=== PATIENT | male | born 1950 | race Caucasian/White ===

== ENCOUNTER 2021-07-17 13:15 | Inpatient (IN) | payer MEDICARE, OTHER ==
[~2021-07-17] VITALS: Ht 193 cm; Wt 98.9 kg
[~2021-07-17 13:15] MED LIST: ASP81TEC PO; AVOD0.5CAP PO; BETA1TAB15 PO; CIPR2.5D RIGHT EAR; HYDR1TAB PO; LVT.1T PO; OMEG1CAP53 PO; PRAV80TA2 PO; TML.25OP OP
--- OUTSIDE RECORDS SUMMARY | 2021-07-17 13:23 | XMS REPORT | Clinical Summary ---
Author Author [facility] Organization [facility] Address Unknown Phone Unavailable Care Team Providers Care Sales Support Consultant Name Role Phone PCP Unavailable Allergies Not on File Medications Not on file Active Problems Not on file Social History Date Tobacco Use Types Packs/Day Years Used Never Assessed Sex Assigned at Date Recorded Not on file Last Filed Vital Signs Not on file Plan of Treatment Not on file Results Not on filefrom Last 3 Months
[2021-07-17 13:45] LABS: HEMATOCRIT 45 % (40-54); HEMOGLOBIN 15.1 g/dL (13.3-17.7); LYMPHOCYTES % (AUTO) 24 % (12-44); MEAN CORPUSCULAR HEMOGLOBIN 31 pg (25-34); MEAN CORPUSCULAR HGB CONC 33 g/dL (32-36); MEAN CORPUSCULAR VOLUME 92 fL (80-99); MEAN PLATELET VOLUME 9.8 fL (9.0-12.2); NEUTROPHILS % (AUTO) 65 % (42-75); PLATELET COUNT 208 10^3/uL (130-400); WHITE BLOOD COUNT 6.8 10^3/uL (4.3-11.0)
[2021-07-17 13:46] LABS: BASOPHILS % (AUTO) 1 % (0-10); BILIRUBIN,URINE NEGATIVE (NEGATIVE); CLARITY,URINE CLEAR; EOSINOPHILS # (AUTO) 0.1 10^3/uL (0.0-0.3); EOSINOPHILS % (AUTO) 2 % (0-10); GLUCOSE, URINE (UA) NEGATIVE (NEGATIVE); KETONES,URINE NEGATIVE (NEGATIVE); LEUKOCYTE ESTERASE ,URINE NEGATIVE (NEGATIVE); LYMPHOCYTES # (AUTO) 1.6 X 10^3 (1.0-4.0); MONOCYTES # (AUTO) 0.6 X 10^3 (0.0-1.0); MONOCYTES % (AUTO) 9 % (0-12); NEUTROPHILS # (AUTO) 4.4 X 10^3 (1.8-7.8); NITRITE,URINE NEGATIVE (NEGATIVE); PH,URINE 6.5 (5-9); PROTEIN,URINE NEGATIVE (NEGATIVE)
[2021-07-17 13:53] LABS: BACTERIA,URINE NEGATIVE /HPF; COLOR,URINE PALE YELLOW; RBC,URINE RARE /HPF; WBC,URINE RARE /HPF
[2021-07-17 13:58] LABS: AMPHETAMINE SCREEN, URINE NEGATIVE (NEGATIVE); BARBITURATE SCREEN URINE NEGATIVE (NEGATIVE); BENZODIAZEPINES SCREEN URINE NEGATIVE (NEGATIVE); CANNABINOID SCREEN, URINE NEGATIVE (NEGATIVE); COCAINE SCREEN URINE NEGATIVE (NEGATIVE); METHADONE STAT NEGATIVE (NEGATIVE); METHAMPHETAMINE SCREEN URINE S NEGATIVE (NEGATIVE); OPIATE SCREEN URINE NEGATIVE (NEGATIVE); OXYCODONE STAT NEGATIVE (NEGATIVE); PROPOXYPHENE STAT NEGATIVE (NEGATIVE); TRICYCLIC ANTIDEPRESSANTS SCRE NEGATIVE (NEGATIVE)
--- NOTE | 2021-07-17 13:58 | ED General ---
General Chief Complaint: Altered Mental Status Stated Complaint: AMS LIGHTHEADED Source of Information: Patient, Spouse History of Present Illness Date Seen by Provider: Jul 17, 2021 Time Seen by Provider: 13:23 Initial Comments 71-year-old male presenting with his due to complaints of feeling lightheaded and having some confusion since around 11:15 AM. Initially his thought that it might be related to him needing to eat lunch. They ate lunch and it did not improve his symptoms. She also checked his blood pressure and it was reading high around 170/98. He continued to have some repetitive questions and lightheaded feeling so after few hours they decided to come to the emergency department. He never had any numbness or weakness in his arms or legs. He denied having any change in his vision but does have macular degeneration so is very limited in his vision. He reports a mild headache. He denies any chest pain, abdominal pain, nausea, vomiting, pain with urination. He has not had any cough or shortness of breath. He denies having a fever or chills. His reports that he usually has a low blood pressure and takes metoprolol for controlling his blood pressure. Timing/Duration: 1-3 Hours Severity: Mild Associated Systoms: No Chest Pain, No Cough, No Diaphoresis, No Fever/Chills; Headaches (mild generalized); No Loss of Appetite, No Malaise, No Nausea/Vomiting, No Rash, No Seizure, No Shortness of Air, No Syncope, No Weakness Allergies and Home Medications Allergies Coded Allergies: Penicillins (Verified Allergy, Unknown, 07/17/21) Patient Home Medication List Home Medication List Reviewed: Yes Aspirin (Aspirin Ec 81 Mg) 81 Mg Tabec, 81 MG PO DAILY, (Reported) Entered as Reported by: ARYA ALONSO on 03/11/11926 Ciprofloxacin Hcl (Ciloxan 0.3%) 2.5 Ml Drops, 3 DROPS RIGHT EAR BID, (Reported) Entered as Reported by: DALE ESQUIVEL on 03/14/11 101 Dutasteride (Avodart) 0.5 Mg Capsule, 0.5 MG PO HS, (Reported) Entered as Reported by: ARYA ALONSO on 03/11/11926 Hydrocodone Bit/Acetaminophen (Vicodin 5-500 Tablet) 1 Each Tablet, 1-2 EACH PO Q4HR PRN, (Reported) Entered as Reported by: DALE ESQUIVEL on 03/14/11 1019 Levothyroxine Sodium (Synthroid) 100 Mcg Tablet, 1 EACH PO DAILY, (Reported) Entered as Reported by: ARYA ALONSO on 03/11/11926 [place]-3 Fatty Acids/Fish Oil (Fish Oil 1,[address]) 1 Each Capsule.dr, 1 EACH PO BID, (Reported) Entered as Reported by: ARYA ALONSO on 03/11/11926 Pravastatin Sodium (Pravastatin Sodium) 80 Mg Tablet, 40 MG PO HS, (Reported) Entered as Reported by: ARYA ALONSO on 03/11/11926 Timolol (Betimol) 15 Ml Drops, 1 DROP OP DAILY, (Reported) Entered as Reported by: ARYA ALONSO on 03/11/11926 Vit A/Vit C/Vit E/Zinc/Copper (Preservision Tablet) 1 Each Tablet, 1 EACH PO DAILY, (Reported) Entered as Reported by: ARYA ALONSO on 03/11/11926 Review of Systems Review of Systems Constitutional: No chills, No dizziness, No fever, No malaise; other (feels light headed) EENTM: no symptoms reported Respiratory: No cough, No short of breath Cardiovascular: No chest pain, No palpitations, No syncope Gastrointestinal: No abdominal pain, No nausea, No vomiting Genitourinary: No dysuria, No frequency Musculoskeletal: no symptoms reported Skin: No rash Psychiatric/Neurological: See HPI, Headache (mild generalized headache); Denies Numbness, Denies Paresthesia, Denies Tingling, Denies Tremors, Denies Weakness Hematologic/Lymphatic: Denies Blood Clots Past Pjcwmet-Qforfz-Pixmwi Hx Patient Social History Tobacco Use?: No Smoking Status: Never a Smoker Smokeless Tobacco Frequency: Never a User Use of E-Cig and/or Vaping Jorge: Never a User Substance use?: No Alcohol Use?: No Pt feels they are or have been: No Immunizations Up To Date First/Initial COVID19 Vaccinat: Moderna Second COVID19 Vaccination Familia: Moderna COVID19 Vaccine Commissary Manager: Floyd Past Medical History Surgery/Hospitalization HX: Hypothyroid, Hypercholesterolemia, Hypertension Reproductive Disorders: No Physical Exam Vital Signs Vital Signs - First Documented 07/17/21 13:25 Temp 36.4 Pulse 58 Resp 18 B/P (MAP) 219/101 (140) Pulse Ox 99 O2 Delivery Room Air Capillary Refill : Height, Weight, BMI Height: '" Weight: lbs. oz. kg; BMI Method: General Appearance: No Apparent Distress, WD/WN HEENT: PERRL/EOMI, TMs Normal, Pharynx Normal Neck: Full Range of Motion, Normal Inspection, Non Tender, Supple Respiratory: Chest Non Tender, Lungs Clear, Normal Breath Sounds, No Accessory Muscle Use, No Respiratory Distress Cardiovascular: Regular Rate, Rhythm, Normal Peripheral Pulses Gastrointestinal: Normal Bowel Sounds, No Pulsatile Mass, Non Tender, Soft Rectal: Deferred Back: No CVA Tenderness, No Vertebral Tenderness Extremity: Normal Capillary Refill, Normal Inspection, No Calf Tenderness, No Pedal Edema Neurologic/Psychiatric: Alert, Oriented x3, No Motor/Sensory Deficits, Normal Mood/Affect, manager clinical applications II-XII Norm as Tested Skin: Normal Color, Warm/Dry Progress/Results/Core Measures Suspected Sepsis SIRS Temperature: Pulse: Respiratory Rate: Laboratory Tests 07/17/21 13:32: White Blood Count 6.8 Blood Pressure / Mean: Laboratory Tests 07/17/21 13:32: Creatinine 1.02, INR Comment 1.0, Platelet Count 208, Total Bilirubin 1.3H Results/Orders Lab Results Laboratory Tests Test 07/17/21 13:32 Range/Units White Blood Count 6.8 4.3-11.0 10^3/uL Red Blood Count 4.94 4.30-5.52 10^6/uL Hemoglobin 15.1 13.3-17.7 g/dL Hematocrit 45 40-54 % Mean Corpuscular Volume 92 80-99 fL Mean Corpuscular Hemoglobin 31 25-34 pg Mean Corpuscular Hemoglobin Concent 33 32-36 g/dL Red Cell Distribution Width 13.2 10.0-14.5 % Platelet Count 208 130-400 10^3/uL Mean Platelet Volume 9.8 9.0-12.2 fL Immature Granulocyte % (Auto) 0 % Neutrophils (%) (Auto) 65 42-75 % Lymphocytes (%) (Auto) 24 12-44 % Monocytes (%) (Auto) 9 0-12 % Eosinophils (%) (Auto) 2 0-10 % Basophils (%) (Auto) 1 0-10 % Neutrophils # (Auto) 4.4 1.8-7.8 X 10^3 Lymphocytes # (Auto) 1.6 1.0-4.0 X 10^3 Monocytes # (Auto) 0.6 0.0-1.0 X 10^3 Eosinophils # (Auto) 0.1 0.0-0.3 10^3/uL Basophils # (Auto) 0.0 0.0-0.1 10^3/uL Immature Granulocyte # (Auto) 0.0 0.0-0.1 10^3/uL Prothrombin Time 13.1 12.2-14.7 SEC INR Comment 1.0 0.8-1.4 Activated Partial Thromboplast Time 26 24-35 SEC Urine Color PALE YELLOW Urine Clarity CLEAR Urine pH 6.5 5-9 Urine Specific Merritt <=1.005 1.016-1.022 Urine Protein NEGATIVE NEGATIVE Urine Glucose (UA) NEGATIVE NEGATIVE Urine Ketones NEGATIVE NEGATIVE Urine Nitrite NEGATIVE NEGATIVE Urine Bilirubin NEGATIVE NEGATIVE Urine Urobilinogen 0.2 < = 1.0 MG/DL Urine Leukocyte Esterase NEGATIVE NEGATIVE Urine RBC (Auto) NEGATIVE NEGATIVE Urine RBC RARE /HPF Urine WBC RARE /HPF Urine Squamous Epithelial Cells NONE /HPF Urine Crystals NONE /LPF Urine Bacteria NEGATIVE /HPF Urine Casts NONE /LPF Urine Mucus NEGATIVE /LPF Urine Culture Indicated NO Sodium Level 139 135-145 MMOL/L Potassium Level 4.8 3.6-5.0 MMOL/L Chloride Level 105 98-107 MMOL/L Carbon Dioxide Level 26 21-32 MMOL/L Anion Gap 8 5-14 MMOL/L Blood Urea Nitrogen 15 7-18 MG/DL Creatinine 1.02 0.60-1.30 MG/DL Estimat Glomerular Filtration Rate 72 BUN/Creatinine Ratio 15 Glucose Level 105 70-105 MG/DL Calcium Level 8.7 8.5-10.1 MG/DL Corrected Calcium 8.5 8.5-10.1 MG/DL Magnesium Level 2.3 1.6-2.4 MG/DL Total Bilirubin 1.3 H 0.1-1.0 MG/DL Aspartate Amino Transf (AST/SGOT) 23 5-34 U/L Alanine Aminotransferase (ALT/SGPT) 21 0-55 U/L Alkaline Phosphatase 70 40-136 U/L Troponin I < 0.30 <0.30 NG/ML Pro-B-Type Natriuretic Peptide 146.0 H <75.0 PG/ML Total Protein 7.3 6.4-8.2 GM/DL Albumin 4.3 3.2-4.5 GM/DL Salicylates Level < 0.3 L 5.0-20.0 MG/DL Urine Opiates Screen NEGATIVE NEGATIVE Urine Oxycodone Screen NEGATIVE NEGATIVE Urine Methadone Screen NEGATIVE NEGATIVE Urine Propoxyphene Screen NEGATIVE NEGATIVE Acetaminophen Level < 10 L 10-30 UG/ML Urine Barbiturates Screen NEGATIVE NEGATIVE Ur Tricyclic Antidepressants Screen NEGATIVE NEGATIVE Urine Phencyclidine Screen NEGATIVE NEGATIVE Urine Amphetamines Screen NEGATIVE NEGATIVE Urine Methamphetamines Screen NEGATIVE NEGATIVE Urine Benzodiazepines Screen NEGATIVE NEGATIVE Urine Cocaine Screen NEGATIVE NEGATIVE Urine Cannabinoids Screen NEGATIVE NEGATIVE Serum Alcohol < 10 <10 MG/DL My Orders Orders - KENDALL CHAHAL MD Ua Culture If Indicated (07/17/21 13:25) Cbc With Automated Diff (07/17/21 13:25) Comprehensive Metabolic Panel (07/17/21 13:25) Alcohol (07/17/21 13:25) Drug Screen Stat (Urine) (07/17/21 13:25) Acetaminophen (07/17/21 13:25) Salicylate (07/17/21 13:25) Ekg Tracing (07/17/21 13:25) Ed Iv/Invasive Line Start (07/17/21 13:25) Monitor-Rhythm Ecg Trace Only (07/17/21 13:25) Ct Head Wo (07/17/21 13:48) Chest 1 View Ap/Pa Only (07/17/21 13:48) Troponin I Fs (07/17/21 13:48) Probnp Fs (07/17/21 13:48) Magnesium (07/17/21 13:48) Protime With Inr (07/17/21 14:33) Partial Thromboplastin Time (07/17/21 14:33) Ct Angio Head/Neck (07/17/21 16:25) Iohexol Injection (Omnipaque 350 Mg/Ml 1 (07/17/21 16:45) Received Contrast (Hold Metformin- Contr (07/17/21 16:45) Ns (Ivpb) (Sodium Chloride 0.9% Ivpb Bag (07/17/21 16:45) Medications Given in ED Current Medications Medications Dose Ordered Sig/Indu Route Start Time Stop Time Status Last Admin Dose Admin Iohexol 100 ml ONCE ONCE IV 07/17/21 16:45 07/17/21 16:46 DC 07/17/21 16:52 80 ML Sodium Chloride 100 ml ONCE ONCE IV 07/17/21 16:45 07/17/21 16:46 DC 07/17/21 16:52 100 ML Vital Signs/I&O 07/17/21 07/17/21 13:25 17:39 Temp 36.4 36.0 Pulse 58 82 Resp 18 16 B/P (MAP) 219/101 (140) 142/76 Pulse Ox 99 99 O2 Delivery Room Air Room Air Capillary Refill : Progress Note #1: Progress Note He has severe macular degeneration and limited eyesight. His NIH scale was 0. He reports having some lightheaded sensation and the reports he continues to have some repetitive questions. He is oriented x3 and answering all questions appropriately for us. Will obtain blood work as well as CT of the head, chest x-ray, urine. He is hypertensive at 219/101 on arrival. This could be hypertensive urgency that is causing his symptoms. Will continue to monitor his blood pressure and it may necessitate a medication intervention to help control this. Differential diagnosis includes hypertensive urgency, stroke, TIA, UTI, sinusitis, pneumonia, electrolyte imbalance Progress Note #2: Progress Note Without medication his blood pressure was trending down on its own. He reports that his lightheaded sensation was improving. He had no acute significant a bnormality on his blood work or electrocardiogram. His chest x-ray was clear. His initial CT head showed some microvascular chronic small vessel changes but no acute bleed or stroke findings. Updated patient and spouse and advised that he may require CT angiogram or CT of his head with I to help look at his blood vessels and carotid arteries better. The neurology doctors at over the ones that we consult about stroke and neurology changes so I will call them and get their input as well. Progress Note #3: Progress Note The on-call stroke neurologist, Dr. Dupont, reviewed the case with me over the phone. With the patient in a stroke scale is 0 but still having some repetitive questions per the , Dr. Dupont recommended admission for TIA/stroke work-up. he also recommends Vitamin B12 level. d/w Dr. Mason the vocational training instructor doctor for Dr. Fuller. Will admit for further testing and monitor his blood pressure and neuro checks. ECG Initial ECG Impression Date: Jul 17, 2021 Initial ECG Impression Time: 13:36 Initial ECG Rate: 55 Initial ECG Rhythm: Normal Sinus Initial ECG Comparisson: Unchanged Comment Normal sinus rhythm with a heart rate of 55 bpm. CA interval 205 ms. QT interval 443 ms with a QTc interval 424 ms. Appears similar to tracing from 2010. No acute ST elevation. Diagnostic Imaging Diagonstic Imaging: Xray Plain Films/CT/US/NM/MRI: chest Comments [facility] [place] [place] NAME: CANDICE QUEZADA [facility] REC#: [id number] PT STATUS: REG ER : 1950 PHYSICIAN: KENDALL CHAHAL MD ADMIT DATE: 07/17/21/ER FS Signed Date of Exam:07/17/21 CHEST 1 VIEW AP/PA ONLY INDICATION: Lightheadedness and elevated blood pressure. TIME OF EXAM: 1:56 PM No prior studies are available for comparison. The heart size is normal. The pulmonary vascularity is unremarkable. The lungs are clear. No infiltrate, effusion or pneumothorax is detected. IMPRESSION: No acute cardiopulmonary process is detected. Dictated by: Dictated on workstation # [id number] Dict: 07/17/21 1413 Trans: 07/17/21 1559 [facility] [id number] Interpreted by: ESME HALL MD Electronically signed by: ESME HALL MD 07/17/21 1559 Reviewed: Reviewed by La Diagonstic Imaging: CT Plain Films/CT/US/NM/MRI: head Comments [facility] [place] [place] NAME: CANDICE QUEZADA [facility] REC#: [id number] PT STATUS: REG ER : 1950 PHYSICIAN: KENDALL CHAHAL MD ADMIT DATE: 07/17/21/ER FS Draft Date of Exam:07/17/21 CT HEAD WO PROCEDURE: CT head without contrast. TECHNIQUE: Multiple contiguous axial images were obtained through the brain without the use of intravenous contrast. Auto Exposure Controls were utilized during the CT exam to meet ALARA standards for radiation dose reduction. INDICATION: Dizziness. COMPARISON: None. FINDINGS: The ventricles and cortical sulci are diffusely prominent, compatible with age-related volume loss. There are confluent areas of abnormal, low attenuation in the periventricular white matter. This is consistent with small vessel ischemic changes; age-indeterminate. There is no prior study available for comparison. There is no midline shift or mass-effect. No acute intra-axial hemorrhage is seen. There are no abnormal areas of increased or decreased density to suggest acute hemorrhage or edema. No extra-axial masses or collections are present. The bony calvarium is intact. The visualized paranasal sinuses show debris partially filling the left maxillary sinus. The mastoid air cells are clear. IMPRESSION: 1. No acute intracranial abnormality. No CT evidence of mass, acute infarct or intracranial hemorrhage. 2. Small vessel ischemic changes in the periventricular and subcortical white matter; likely chronic. Dictated on workstation # [id number] Dict: 07/17/21 1429 Trans: 07/17/21 1433 [id number] Interpreted by: JET AJ MD Electronically signed by: Reviewed: Reviewed by Me Diagonstic Imaging: CT (angiography) Plain Films/CT/US/NM/MRI: head (and neck) Comments [facility] [place] [place] NAME: CANDICE QUEZADA [facility] REC#: [id number] PT STATUS: REG ER : 1950 PHYSICIAN: KENDALL CHAHAL MD ADMIT DATE: 07/17/21/ER FS Signed Date of Exam:07/17/21 CT ANGIO HEAD/NECK PROCEDURE: CT angiography of the head and CT angiography of the neck with and without contrast. TECHNIQUE: Contiguous noncontrast images were obtained from the skull base through the vertex. After intravenous contrast administration, helical CT angiography of the neck was performed. Source data was reformatted into 3D MIP projections. Delayed postcontrast acquisition was also obtained. Auto Exposure Controls were utilized during the CT exam to meet ALARA standards for radiation dose reduction. INDICATION: Altered mental status. COMPARISON: Noncontrast head from earlier same day. FINDINGS: CTA NECK: Visualized portions of the aortic arch are normal. The great vessels of the aortic arch are patent. Bilateral common carotid arteries are normal. There is no stenosis of the internal carotid arteries per NASCET criteria. The cervical divisions of the internal carotid arteries are patent. The bilateral vertebral arteries are codominant and widely patent. No cervical lymphadenopathy. Airway is widely patent. No concerning abnormality in the cervical spine. CTA HEAD: The bilateral distal internal carotid arteries are widely patent. The M1 and M2 divisions of the middle cerebral arteries are normal. Anterior cerebral arteries are normal. Basilar artery is widely patent without terminal aneurysm. Posterior cerebral arteries are patent. No saccular aneurysm. Dural venous sinuses are patent. IMPRESSION: 1. No intracranial large vessel occlusion or saccular aneurysm. 2. No stenosis or arterial occlusion within the neck. 3. Patent dural venous sinuses. Dictated by: Dictated on workstation # [id number] Dict: 07/17/211658 Trans: 07/17/211804 [id number] Interpreted by: DOMENICO YIN MD Electronically signed by: DOMENICO YIN MD 07/17/211804 Departure Communication (Admissions) Time/Spoke to Admitting Phy: 16:[address] Mason about the patient. Patient's labs and test showed some microvascular changes on his head but no signs of definite stroke. My phone consult with Dr. Dupont, the vocational training instructor stroke neurologist, resulted in him recommending an admit for TIA work up to help differentiate from hypertensive ur gency vs stroke/TIA. Will obtain CT angiography here and continue with testing at [facility]. Impression Primary Impression: Hypertensive urgency Additional Impressions: Memory deficit Altered mental status Qualified Codes: R40.4 - Transient alteration of awareness Disposition: 30 STILL A PATIENT Condition: Stable Admissions Decision to Admit Reason: Admit from ER (General) Decision to Admit/Date: Jul 17, 2021 Time/Decision to Admit Time: 16:39 Departure-Patient Inst. Referrals: TERESSA FULLER MD (PCP) Primary Care Physician NIH Stroke Scale NIH Stroke Scale NIH : Select: Initial Level of Consciousness: 0=Alert Level of Consciousness-Questio: 0=Answers both month/age LOC Commands: 0=Performs both tasks Gaze: 0=Normal Visual Hong: 0=No visual loss Facial Movement (Facial Paresi: 0=Normal symmetrical mnt Motor Function-Arms Right: 0=No drift Motor Function-Arms Left: 0=No drift Motor Function-Legs Right: 0=No drift Motor Function-Legs Left: 0=No drift Limb Ataxia: 0=Absent Sensory: 0=Normal:no loss Best Language: 0=No aphasia Dysarthria: 0=Normal Extinction & Inattention: 0=No abnormality NIH Stroke Scale Score: 0 KENDALL CHAHAL MD Jul 17, 2021 13:58
--- NOTE | 2021-07-17 14:19 | Diagnostic Imaging Report ---
INDICATION: Lightheadedness and elevated blood pressure. TIME OF EXAM: 1:56 PM No prior studies are available for comparison. The heart size is normal. The pulmonary vascularity is unremarkable. The lungs are clear. No infiltrate, effusion or pneumothorax is detected. IMPRESSION: No acute cardiopulmonary process is detected. Dictated by: Dictated on workstation # [id number]
[2021-07-17 14:27] LABS: CARBON DIOXIDE 26 MMOL/L (21-32); CHLORIDE 105 MMOL/L (98-107); POTASSIUM 4.8 MMOL/L (3.6-5.0); SODIUM 139 MMOL/L (135-145)
[2021-07-17 14:28] LABS: ACETAMINOPHEN < 10 UG/ML (10-30); ALANINE AMINOTRANSFERASE 21 U/L (0-55); ALBUMIN 4.3 GM/DL (3.2-4.5); ALKALINE PHOSPHATASE 70 U/L (40-136); BILIRUBIN,TOTAL 1.3 MG/DL (0.1-1.0); BUN/CREATININE RATIO 15; CALCIUM 8.7 MG/DL (8.5-10.1); CREATININE SERUM 1.02 MG/DL (0.60-1.30); GFR ESTIMATED 72; GLUCOSE 105 MG/DL (70-105); SALICYLATE < 0.3 MG/DL (5.0-20.0); TOTAL PROTEIN 7.3 GM/DL (6.4-8.2)
[2021-07-17 14:29] LABS: MAGNESIUM 2.3 MG/DL (1.6-2.4)
--- NOTE | 2021-07-17 14:34 | Diagnostic Imaging Report ---
PROCEDURE: CT head without contrast. TECHNIQUE: Multiple contiguous axial images were obtained through the brain without the use of intravenous contrast. Auto Exposure Controls were utilized during the CT exam to meet ALARA standards for radiation dose reduction. INDICATION: Dizziness. COMPARISON: None. FINDINGS: The ventricles and cortical sulci are diffusely prominent, compatible with age-related volume loss. There are confluent areas of abnormal, low attenuation in the periventricular white matter. This is consistent with small vessel ischemic changes; age-indeterminate. There is no prior study available for comparison. There is no midline shift or mass-effect. No acute intra-axial hemorrhage is seen. There are no abnormal areas of increased or decreased density to suggest acute hemorrhage or edema. No extra-axial masses or collections are present. The bony calvarium is intact. The visualized paranasal sinuses show debris partially filling the left maxillary sinus. The mastoid air cells are clear. IMPRESSION: 1. No acute intracranial abnormality. No CT evidence of mass, acute infarct or intracranial hemorrhage. 2. Small vessel ischemic changes in the periventricular and subcortical white matter; likely chronic. Dictated by: Dictated on workstation # [id number]
[2021-07-17 14:45] LABS: PROTHROMBIN TIME PATIENT 13.1 SEC (12.2-14.7)
[2021-07-17] MEDS ORDERED: IOHEXOL 350 MG/ML 100 ML (OMNIPAQUE 350) VIAL IV ONE (16:45)
[2021-07-17] MEDS ORDERED: NS 100 ML (IVPB) BAG IV ONE (16:45)
[2021-07-17] MEDS ORDERED: HOLD METFORMIN - RECEIVED CONTRAST 20 ML VIAL IV SCH (16:45)
--- NOTE | 2021-07-17 17:10 | Diagnostic Imaging Report ---
PROCEDURE: CT angiography of the head and CT angiography of the neck with and without contrast. TECHNIQUE: Contiguous noncontrast images were obtained from the skull base through the vertex. After intravenous contrast administration, helical CT angiography of the neck was performed. Source data was reformatted into 3D MIP projections. Delayed postcontrast acquisition was also obtained. Auto Exposure Controls were utilized during the CT exam to meet ALARA standards for radiation dose reduction. INDICATION: Altered mental status. COMPARISON: Noncontrast head from earlier same day. FINDINGS: CTA NECK: Visualized portions of the aortic arch are normal. The great vessels of the aortic arch are patent. Bilateral common carotid arteries are normal. There is no stenosis of the internal carotid arteries per NASCET criteria. The cervical divisions of the internal carotid arteries are patent. The bilateral vertebral arteries are codominant and widely patent. No cervical lymphadenopathy. Airway is widely patent. No concerning abnormality in the cervical spine. CTA HEAD: The bilateral distal internal carotid arteries are widely patent. The M1 and M2 divisions of the middle cerebral arteries are normal. Anterior cerebral arteries are normal. Basilar artery is widely patent without terminal aneurysm. Posterior cerebral arteries are patent. No saccular aneurysm. Dural venous sinuses are patent. IMPRESSION: 1. No intracranial large vessel occlusion or saccular aneurysm. 2. No stenosis or arterial occlusion within the neck. 3. Patent dural venous sinuses. Dictated by: Dictated on workstation # [id number]
[2021-07-17] MEDS ORDERED: hydrALAZINE (APESOLINE) 20 MG/ML VIAL IV PRN (19:45)
[2021-07-17] MEDS ORDERED: lisINopril 20 MG (PRINIVIL) TABLET PO ONE (19:45)
[2021-07-17] MEDS ORDERED: lisINopril 20 MG (PRINIVIL) TABLET ONE (19:57)
[2021-07-17 20:05] VITALS: BP 180/91
[2021-07-18] VITALS: BP 136/80
[2021-07-18 04:00] VITALS: BP 163/91
[2021-07-18 05:37] LABS: TRIGLYCERIDES 132 MG/DL (<150); VLDL CHOLESTEROL 26 MG/DL (5-40)
[2021-07-18 05:41] LABS: CHOLESTEROL 153 MG/DL (< 200)
[2021-07-18 05:42] LABS: HDL CHOLESTEROL 31 MG/DL (40-60)
[2021-07-18 08:00] VITALS: BP 154/91
--- NOTE | 2021-07-18 08:41 | ST Dysphagia Evaluation ---
Speech Evaluation-General Medical Diagnosis HTN, AMS Onset Date: Jul 18, 2021 Therapy Diagnosis Therapy Diagnosis: Oropharyngeal Dysphagia Precautions Precautions: Aspiration Referral Referring Physician: Dr. Mason Medical History Pertinent Medical History: HTN Reviewed History: Yes Social History Current Living Status: Spouse Speech PLF/Current-Dysphagia Prior Level of Function Patient lived in the home with his in [place] where he was independent with his daily needs. Subjective Patient was pleasant and cooperative with the Bedside Dysphagia Evaluation. Cognitive Status Patient Orientation: Person, Confused, Place, Time, Situation Oral Motor Skills Dentition: Natural Current Food Consistancy: Regular, Thin Liquids Ability to Follow Directions: Excellent Oral Expression Ability: No Impairment Voice Voice Phonatory-Based Quality: Normal Voice Pitch: Normal Voice Loudness: Normal Face Facial Symmetry: Symmetrical Oral-Facial Assessment Oral-Facial Dentition: Normal Labial Seal Description: Normal Smile: Normal Puff Cheeks: Normal Lingual Protrusion: Normal Lingual ROM: Normal Lingual Strength: Normal Pharynx Velopharyngeal Move.: Normal Volitional Dry Swallow: Yes Voluntary Cough: Yes Can Clear Throat Volitionally: Yes Productive Cough: Yes Dysphagia Evaluation Consistencies Presented: Regular, Mechanical Soft, Pureed Oral phase is within normal range of function with all presented consistencies. Pharyngeal phase is within normal range of function with all presented consistencies. Dietary Recommendations: Regular Liquid Recommendations: Thin Swallowing Precautions: Alternate Liquids/Solids, Liquids from Cup, Liquids from Straw, Small Bites and Sips, Sitting Upright 90 Degrees, Sitting 90 Degrees 30 Post Intake Dysphagia Evaluation Summary Patient is a pleasant 71 y/o male who was admitted to the hospital via ED due to AMS. Patient states he has high blood pressure but didn't know until yesterday in the ED. The patient was evaluated at bedside for swallow function to determine the least restrictive diet level. The patient was given trials of thin liquids with 1/2 tsp and straw of small sips without difficulty. The patient was given bite size of puree, mechanical soft and regular without difficulty. The patient is recommended to continue on the regular diet consistency with thin liquids. This information was provided for his nurse. Barriers to Learning None identified Speech-Plan Patient/Family Goals Patient/Family Goals: Patient plans on returning to his home where he lives with his . Treatment Plan Speech Therapy Treatment Plan: Discontinue ST Treatment Duration: Jul 18, 2021 Frequency: 1 time per week Estimated Hrs Per Day: .25 hour per day Rehab Potential: Good Barriers to Learning: None identified Pt/Family Agrees to Plan: Yes Safety Risks/Education Teaching Recipient: Patient Teaching Methods: Discussion Response to Teaching: Verbalize Understanding Education Topics Provided: Compensatory strategies for safe oral intake, diet level Time Speech Therapy Time In: 08:00 Speech Therapy Time Out: 08:15 Total Billed Time: 15 Billed Treatment Time 1, DYSMALKA, DYST KAREN Ortega Jul 18, 2021 08:40
--- NOTE | 2021-07-18 10:50 | History & Physical-Hospitalist ---
History of Present Illness HPI/Chief Complaint CC: Altered mental status with high blood pressure HPI: Yesterday around lunch time, patient was down in his office working when his noticed increased confusion and brief memory lapses. For example, per , "he had pistachios as a snack and could not remember what they were called." Patient reported he just felt off and was feeling lightheaded. took his blood pressure at home and it was around 167/98. Patient denies any periods of asymmetric weakness. Denies falling. Blood pressures have been pretty normal at home, per . He just started taking metoprolol within the last year. He has never had any times of confusion or altered mental status before. He does report brief episodes of lightheadedness/dizziness over that past several months. Frequently he closes his eyes when this happens and the s ensation goes away. Denies any fevers, chills, congestion, sore throat, trouble swallowing, chest pain, palpitations, shortness of breath, cough, nausea, vomiting, constipation, diarrhea, rashes, or changes in skin. Does have increased urinary frequency, but this has been a chronic problem due to "nervous bladder." Reports slight headache but feels it may be due to poor sleep and no coffee. Source: patient, family Exam Limitations: no limitations Date Seen 07/18/21 Attending Physician Enma Mason MD PCP Johnny Fuller MD Referring Physician Date of Admission Jul 17, 2021 at 19:00 Home Medications & Allergies Home Medications Reviewed patient Home Medication Reconciliation performed by pharmacy medication reconciliations microwave radio technician and/or nursing. Patients Allergies have been reviewed. Allergies Allergies Coded Allergies Penicillins (Verified Allergy, Unknown, 07/17/21) Past Sorktqj-Xoaksn-Wiiltu Hx Patient Social History Marrital Status: Tobacco Use?: No Smoking Status: Never a Smoker Smokeless Tobacco Frequency: Never a User Use of E-Cig and/or Vaping dev: No Use of E-Cig and/or Vaping Jorge: Never a User Substance use?: No Alcohol Use?: Yes Alcohol Frequency: Once in a while Pt feels they are or have been: No Immunizations Up To Date Date of Influenza Vaccine: May 10, 2021 First/Initial COVID19 Vaccinat: 09/22/20 Second COVID19 Vaccination Familia: OCTOBER 2020 Tetanus Booster (TDap): Unknown Hepatitis A: No Hepatitis B: No Current Status Advance Directives: No Communicates: Verbally Primary Language: Slovenian Preferred Spoken Language: Slovenian Is interpretation needed?: No Sensory deficits: Vision impairment Past Medical History High Cholesterol, Hypertension Benign Prostatic Hyperpl, Neurogenic Bladder Loss of Vision: Denies Hearing Impairment: Denies Family Medical History Cardiovascular disease 19 FATHER Myocardial infarction 19 FATHER Stroke or transient ischemic attack in mother TIAs 19 MOTHER Thyroid disease 19 FATHER Heart Disease Review of Systems Constitutional: see HPI EENTM: see HPI Respiratory: see HPI Cardiovascular: see HPI Gastrointestinal: see HPI Genitourinary: see HPI Musculoskeletal: see HPI Skin: see HPI Psychiatric/Neurological: See HPI Physical Exam Physical Exam Vital Signs Vital Signs - First Documented 07/17/21 13:25 Temp 36.4 Pulse 58 Resp 18 B/P (MAP) 219/101 (140) Pulse Ox 99 O2 Delivery Room Air Capillary Refill : Less Than 3 Seconds Height, Weight, BMI Height: '" Weight: lbs. oz. kg; 26.55 BMI Method: General Appearance: No Apparent Distress Eyes: Bilateral Eye Normal Inspection, Bilateral Eye PERRL, Bilateral Eye EOMI HEENT: PERRL/EOMI Neck: Normal Inspection, Supple Respiratory: No Accessory Muscle Use, No Respiratory Distress Cardiovascular: No Edema, Normal Peripheral Pulses Neurologic/Psychiatric: Alert, Oriented x3, No Motor/Sensory Deficits, Normal Mood/Affect, splitter operator II-XII Norm as Tested Skin: Normal Color, Warm/Dry Results Results/Procedures Labs Laboratory Tests 07/17/21 13:32 Patient resulted labs reviewed. Imaging: Reviewed Imaging Films, Reviewed Imaging Report Imaging Chest x-ray, CTA head/neck, MRI of brain, CT head Assessment/Plan Admission Diagnosis Altered mental status with hypertensive urgency Admission Status: Observation Assessment and Plan Altered Mental status * Periods of lightheadedness over previous several months * Brief episode of confusion 07/17 * Imaging unremarkable for hemorrhage, stroke, or other etiology * Plan: Follow-up with PCP. Seek medical care if any changes in mental status Hypertensive urgency, chronic hypertension * Treated with metoprolol outpatient. Patient with HR in 50s. Plan: Start Lisinopril for blood pressure control at home. Discontinue metoprolol. Diagnosis/Problems Diagnosis/Problems (1) Altered mental status Onset Date: ~ 07/17/2021 Status: Acute Assessment & Plan: Plan: Follow-up with PCP. Seek medical care if any changes in mental status Qualifiers: Altered mental status type: transient alteration of awareness Qualified Codes: R40.4 - Transient alteration of awareness (2) Hypertensive urgency Onset Date: ~ 07/17/2021 Status: Acute Assessment & Plan: Plan: Start Lisinopril for blood pressure control at home. Discontinue metoprolol. STEWART UGALDE Jul 18, 2021 10:50
[2021-07-18] MEDS ORDERED: lisINopril 20 MG (PRINIVIL) TABLET PO SCH (11:45)
[2021-07-18] MEDS ORDERED: TIMO5DRO5 OU (12:02)
[2021-07-18] MEDS ORDERED: BETA1TAB15 PO (12:02)
[2021-07-18] MEDS ORDERED: LEVO150T96 PO (12:02)
[2021-07-18] MEDS ORDERED: LATA2.5D19 OU (12:02)
[2021-07-18] MEDS ORDERED: FINA5TAB6 PO (12:02)
[2021-07-18] MEDS ORDERED: ATOR40TA70 PO (12:02)
[2021-07-18] MEDS ORDERED: MTP25TSR PO (12:02)
[2021-07-18 12:30] VITALS: BP 135/86
--- NOTE | 2021-07-18 12:44 | Diagnostic Imaging Report ---
PROCEDURE: MR imaging of the brain without contrast. TECHNIQUE: Multiplanar, multisequence MR imaging of the brain was performed without contrast. INDICATION: Weakness. TIA. COMPARISON: CTA head and neck 07/17/2021. FINDINGS: Examination was abbreviated due to patient cooperation. No restricted water diffusion. Moderate generalized parenchymal volume loss and nonspecific T2 hyperintensities in the supratentorial white matter compatible with chronic small vessel ischemic change. No hydrocephalus or extra-axial fluid collections are identified. Intracranial flow voids are unremarkable. Postoperative changes in the globes. Mucosal thickening in the floor of the left maxillary sinus. Normal bone marrow signal. IMPRESSION: 1. Abbreviated exam due to patient cooperation. 2. No restricted water diffusion to suggest an acute infarction. 3. No T1 or gradient sequences were performed. Intracranial hemorrhage evaluation is limited. Dictated by: Dictated on workstation # [id number]
[2021-07-18] MEDS ORDERED: LISI20TA26 PO (14:24)
--- NOTE | 2021-07-18 14:26 | Discharge Summary ---
Discharge [facility] Reconcile Patient Problems Problems Reviewed?: Yes Discharge Medications New, Converted or Re-Newed RX: Transmitted to Pharmacy New Medications: Lisinopril (Lisinopril) 20 Mg Tablet 20 MG PO DAILY, #30 TAB Continued Medications: Atorvastatin Calcium (Atorvastatin Calcium) 40 Mg Tablet 40 MG PO HS, TAB Finasteride (Finasteride) 5 Mg Tablet 5 MG PO HS, TAB Latanoprost (Xalatan) 2.5 Ml Drops 1 DROP OU HS, DROPS Levothyroxine Sodium (Euthyrox) 150 Mcg Tablet 150 MCG PO DAILY, TAB Timolol Maleate (Timolol Maleate 0.5%) 5 Ml Drops 1 DROP OU DAILY, DROPS Vit A/Vit C/Vit E/Zinc/Copper (Preservision Areds Tablet) 1 Each Tablet 1 EACH PO BID, TAB Discontinued Medications: Metoprolol Succinate (Metoprolol Succinate) 25 Mg Tab.er.24h 25 MG PO DAILY, TAB Patient Instructions Goal/Follow Up Appt: f/u next week with Self Activity & Diet Discharge Diet: Cardiac Diet Activity as Tolerated: Yes ALONSO HOROWITZ MD Jul 18, 2021 14:26
--- NOTE | 2021-07-18 14:55 | Discharge Summary ---
Diagnosis/Chief Complaint Date of Admission Jul 17, 2021 at 19:00 Date of Discharge Discharge Date: Jul 18, 2021 Admission Diagnosis Altered mental status with hypertensive urgency Primary Care Self,Johnny [facility] Discharge Diagnosis (1) Altered mental status Onset Date: ~ 07/17/2021 Status: Acute Assessment & Plan: Plan: Follow-up with PCP. Seek medical care if any changes in mental status (2) Hypertensive urgency Onset Date: ~ 07/17/2021 Status: Acute Assessment & Plan: Plan: Start Lisinopril for blood pressure control at home. Discontinue metoprolol. Discharge Summary Discharge Physical Exam Allergies: Coded Allergies: Penicillins (Verified Allergy, Unknown, 07/17/21) Vitals & I&Os Vital Signs Date Time Temp Pulse Resp B/P (MAP) Pulse Ox O2 Delivery O2 Flow Rate FiO2 07/18/21 12:30 36.4 62 18 135/86 (102) 95 Room Air General Appearance: No Apparent Distress HEENT: PERRL/EOMI, Pharynx Normal, Moist Mucous Membranes Respiratory: No Accessory Muscle Use, No Respiratory Distress Cardiovascular: Normal Peripheral Pulses Extremity: Normal Inspection, Normal Range of Motion, Non Tender, No Calf Tenderness, No Pedal Edema Skin: Normal Color, Warm/Dry Neurologic/Psychiatric: Alert, Oriented x3, No Motor/Sensory Deficits, Normal Mood/Affect Hospital Course Was the Problem List Reviewed?: Yes Mr. Henok Vieyra is a 71 year old male with PMH of hypothyroidism, hypertension, BPH, hyperlipidemia, and myopic degeneration who presented with a chief complaint of altered mental status with hypertension. Yesterday (07/17/21), noticed that patient was confused and having brief memory problems. The patient himself, "just felt off." took his blood pressure which was 168/98 and subsequently brought him to the hospital. Previous BP checks at home had been normal. Labs were unremarkable for infection, electrolyte abnormality, or organ dysfunction. Imaging of the brain was unremarkable for stroke, hemorrhage, or another etiology of acute AMS. Cardiac workup was negative. Patient was alert and oriented to person, place, time, and situation and had no pertinent positiv es on neurolgiocal exam. Remainder of patient's physical exam was normal. His heart rate commonly drops into the 50s at home, and that he has had brief episodes of lightheadedness over several months. He has taken metoprolol succinate for BP control at home starting last year. We discontinue that medication and started him on lisinopril due to symptoms. Plan of care was discussed with patient and . Both were understanding. Patient discharged to home. Labs (last 24 hrs) Laboratory Tests 07/18/21 05:15: Triglycerides Level 132, Cholesterol Level 153, LDL Cholesterol Direct 102, VLDL Cholesterol 26, HDL Cholesterol 31L Patient resulted labs reviewed. Imaging: Reviewed Imaging Films, Reviewed Imaging Report Discussion & Recommendations Discharge Planning: <30 minutes discharge planning Discharge Home Medications: Active Scripts Active Lisinopril 20 Mg Tablet 20 Mg PO DAILY Reported Preservision Areds Tablet (Vit A/Vit C/Vit E/Zinc/Copper) 1 Each Tablet 1 Each PO BID Metoprolol Succinate 25 Mg Tab.er.24h 25 Mg PO DAILY Euthyrox (Levothyroxine Sodium) 150 Mcg Tablet 150 Mcg PO DAILY Finasteride 5 Mg Tablet 5 Mg PO HS Atorvastatin Calcium 40 Mg Tablet 40 Mg PO HS Timolol Maleate 0.5% (Timolol Maleate) 5 Ml Drops 1 Drop OU DAILY Xalatan (Latanoprost) 2.5 Ml Drops 1 Drop OU HS Condition at discharge stable Instructions to patient/family Please see electronic discharge instructions given to patient. Problem Qualifiers (1) Altered mental status: Altered mental status type: transient alteration of awareness Qualified Codes: R40.4 - Transient alteration of awareness STEWART UGALDE Jul 18, 2021 14:55
== END 2021-07-18 16:15 | disposition home or self-care (01) | DRG 305 ==
LOC: EDUNIT# 13:15 → ER FS 13:18 → CSD 19:00
PROVIDERS: ADMIT Family Medicine; ATTEND Family Medicine
DX: I16.0 Hypertensive urgency (principal); E03.9 Hypothyroidism, unspecified; I10 Essential (primary) hypertension; E11.9 Type 2 diabetes mellitus without complications; N40.0 Benign prostatic hyperplasia without lower urinary tract symptoms; H35.30 Unspecified macular degeneration; N31.9 Neuromuscular dysfunction of bladder, unspecified; Z79.82 Long term (current) use of aspirin; Z79.890 Hormone replacement therapy; Z79.899 Other long term (current) drug therapy
CPT/HCPCS: 36415; 70450; 70496; 70498; 70551; 71045; 80053; 80061; 80306; 80320; 80329; 81000; 83735; 83880; 84484; 85025; 85610; 85730; 93041; 93306

== ENCOUNTER 2021-08-06 16:28 | Emergency (ER) | payer MEDICARE, OTHER ==
[~2021-08-06] VITALS: Ht 193 cm; Wt 100.0 kg
[~2021-08-06 16:28] MED LIST changes: +ATOR40TA70 PO; +FINA5TAB6 PO; +LATA2.5D19 OU; +LEVO150T96 PO; +LISI20TA26 PO; +MTP25TSR PO; +TIMO5DRO5 OU
[2021-08-06 16:48] VITALS: BP 155/111
--- NOTE | 2021-08-06 17:39 | ED General ---
General Chief Complaint: General Problems/Pain Stated Complaint: HIGH BP Nursing Triage Note: Patient has presented to ER with cc of elevated blood pressure. Patient reports that today his blood pressure has been elevated. He reports that he feels a little light headed today. Source of Information: Patient, Spouse History of Present Illness Date Seen by Provider: Aug 06, 2021 Time Seen by Provider: 16:31 Initial Comments 71-year-old male presenting with complaint of elevated blood pressure at home. He had checked it multiple times because it was elevated. He did have some lightheaded sensation as well. He was concerned because it was staying up for him at home. He recently had some issues with elevated blood pressure July 17 where he was admitted for an overnight stay to work-up possible TIA versus hypertensive urgency. At that time it was found to be more just hypertensive urgency and has medications were changed. He was discharged on lisinopril 20 mg a day. He has been doing better on that and tolerating it well. He was seen last week by his primary care provider, Dr. Fuller. They felt that things were improving where he could be seen again in 6 months. With his symptoms to me he was concerned that he needed to be evaluated after calling the clinic and the nurse was telling him there is nothing else that they could do and he should go to the ED. Timing/Duration: 12 Hours Severity: Moderate Associated Systoms: No Chest Pain, No Cough, No Diaphoresis, No Fever/Chills, No Headaches, No Loss of Appetite, No Malaise, No Nausea/Vomiting, No Rash, No Seizure, No Shortness of Air, No Syncope, No Weakness Allergies and Home Medications Allergies Coded Allergies: Penicillins (Verified Allergy, Unknown, 07/17/21) Patient Home Medication List Home Medication List Reviewed: Yes Atorvastatin Calcium (Atorvastatin Calcium) 40 Mg Tablet, 40 MG PO HS, (Reported) Entered as Reported by: MIMI MOYA on 07/18/211201 Finasteride (Finasteride) 5 Mg Tablet, 5 MG PO HS, (Reported) Entered as Reported by: MIMI MOYA on 07/18/211201 Latanoprost (Xalatan) 2.5 Ml Drops, 1 DROP OU HS, (Reported) Entered as Reported by: MIMI MOYA on 07/18/211201 Levothyroxine Sodium (Euthyrox) 150 Mcg Tablet, 150 MCG PO DAILY, (Reported) Entered as Reported by: MIMI MOYA on 07/18/21 1202 Lisinopril (Lisinopril) 20 Mg Tablet, 20 MG PO DAILY Prescribed by: ALONSO HOROWITZ on 07/18/21 1424 Timolol Maleate (Timolol Maleate 0.5%) 5 Ml Drops, 1 DROP OU DAILY, (Reported) Entered as Reported by: MIMI MOYA on 07/18/21 1202 Vit A/Vit C/Vit E/Zinc/Copper (Preservision Areds Tablet) 1 Each Tablet, 1 EACH PO BID, (Reported) Entered as Reported by: MIMI MOYA on 07/18/21 120 Review of Systems Review of Systems Constitutional: No chills, No dizziness, No fever; other (some light headed sensation) EENTM: No ear discharge, No hearing loss, No ear pain, No blurred vision, No double vision, No eye pain, No vision loss, No epistaxis, No nose congestion Respiratory: No cough, No short of breath Cardiovascular: No chest pain, No edema, No palpitations, No syncope Gastrointestinal: No abdominal pain, No nausea, No vomiting Genitourinary: No decreased output, No dysuria, No hematuria Musculoskeletal: no symptoms reported Skin: No rash Psychiatric/Neurological: Anxiety (worried about blood pressure); Denies Headache, Denies Numbness, Denies Paresthesia, Denies Seizure, Denies Tingling, Denies Tremors, Denies Weakness Hematologic/Lymphatic: Denies Blood Clots Past [id number]-[id number] Hx Patient Social History Tobacco Use?: No Use of E-Cig and/or Vaping dev: No Substance use?: No Alcohol Use?: No Immunizations Up To Date First/Initial COVID19 Vaccinat: 09/22/20 Second COVID19 Vaccination Familia: OCTOBER 2020 Past Medical History Surgery/Hospitalization HX: Hypothyroid, Hypercholesterolemia, Hypertension High Cholesterol, Hypertension Reproductive Disorders: No Benign Prostatic Hyperpl, Neurogenic Bladder Loss of Vision: Denies Hearing Impairment: Denies Family Medical History Cardiovascular disease 19 FATHER Myocardial infarction 19 FATHER Stroke or transient ischemic attack in mother TIAs 19 MOTHER Thyroid disease 19 FATHER Heart Disease Physical Exam Vital Signs Vital Signs - First Documented 08/06/21 16:48 Temp 36.0 Pulse 69 Resp 16 B/P (MAP) 155/111 (126) Pulse Ox 99 O2 Delivery Room Air Capillary Refill : Height, Weight, BMI Height: '" Weight: lbs. oz. kg; 26.00 BMI Method: General Appearance: No Apparent Distress, WD/WN, Anxious Eyes: Bilateral Eye PERRL, Bilateral Eye EOMI HEENT: Pharynx Normal Neck: Full Range of Motion, Normal Inspection, Non Tender, Supple; No Carotid Bruit Respiratory: Chest Non Tender, Lungs Clear, Normal Breath Sounds, No Accessory Muscle Use, No Respiratory Distress Cardiovascular: Regular Rate, Rhythm, Normal Peripheral Pulses Gastrointestinal: Normal Bowel Sounds, No Pulsatile Mass, Non Tender, Soft Extremity: Normal Capillary Refill, Normal Inspection, No Pedal Edema Neurologic/Psychiatric: Alert, Oriented x3, No Motor/Sensory Deficits, metal fence erector II- XII Norm as Tested Skin: Normal Color, Warm/Dry Progress/Results/Core Measures Suspected Sepsis SIRS Temperature: Pulse: 69 Respiratory Rate: 16 Blood Pressure 155 /111 Mean: 126 Results/Orders Vital Signs/I&O 08/06/21 16:48 Temp 36.0 Pulse 69 Resp 16 B/P (MAP) 155/111 (126) Pulse Ox 99 O2 Delivery Room Air Capillary Refill : Blood Pressure Mean: 126 Progress Note : Progress Note Reassured patient that his blood pressure was not that bad. Considering he had been 200/120 a few weeks ago. The lisinopril will work that it can take 2 to 4 weeks to really reach maximum effect. They may even have to adjust the dose or adding additional medication. He has eaten more food in general as well as s weets and salty foods over the holidays. He does not drink enough water. He was advised all these things could play a role with his blood pressure. Anxiety and stress will also make him be more tense and cause his blood pressure to be elevated. If he does not have the blood pressure cuff in the right position in place he can raise it as well. He does have macular degeneration so could be difficult for him to have the cuff placed correctly. Also counseled that if he is repeatedly taking his blood pressure it would just make it go higher rather than help make it go lower. Advised to try and take his blood pressure write down the number for a log and then just walk away and not worry about what the number is but have it has at that he can give to the doctor. Patient and spouse seem more reassured and released. Patient stated she was feeling better and not had any further lightheadedness. Will discharge to home and encouraged to continue on medications. Advised to check back with Dr. Fuller if he was having continued high blood pressures and symptoms. Since he just had a large work-up for TIA and stroke 3 weeks ago will defer repeating that today since he does not have any was more severe symptoms. Departure Impression Primary Impression: Elevated blood pressure reading with diagnosis of hypertension Disposition: HOME, SELF-CARE Condition: Stable Departure-Patient Inst. Decision time for Depature: 17:36 Referrals: TERESSA FULLER MD (PCP/Family) Primary Care Physician Patient Instructions: High Blood Pressure ED, Medicines for High Blood Pressure, Controlling Your Blood Pressure Through Lifestyle, Low Salt Diet, DASH Diet Add. Discharge Instructions: Try to drink more water and stay well hydrated. If you are going to check your blood pressure on a regular basis then make sure to write down the value you get and not worry about the number. If it was high then you can go about your day and try to relax and make sure you are drinking enough fluids and then recheck it later in the day. If your pressures are consistently reading high then you need to call Dr. Fuller to see about a follow up appointment sooner than the 6 months that is scheduled. They may want to adjust your dose if you have continued elevated pressures. Try to watch your sodium and diet intake as that can have an effect on your pressure. Being anxious or tense can also effect it as well as not sleeping well enough. All discharge instructions reviewed with patient and/or family. Voiced understanding. KENDALL CHAHAL MD Aug 06, 2021 17:39
== END 2021-08-06 17:45 | disposition home or self-care (01) ==
LOC: EDUNIT# 16:28 → ER FS 16:29
DX: I10 Essential (primary) hypertension (principal); E03.9 Hypothyroidism, unspecified; E78.00 Pure hypercholesterolemia, unspecified; Z86.73 Personal history of transient ischemic attack (TIA), and cerebral infarction without residual deficits; Z79.890 Hormone replacement therapy; Z79.899 Other long term (current) drug therapy
CPT/HCPCS: 99281

== ENCOUNTER → 2022-04-30 | Outpatient (CLI) | payer MEDICARE, OTHER ==
--- NOTE | 2022-04-30 10:45 | Diagnostic Imaging Report ---
CLINICAL INDICATION: Patient with chronic sinusitis. EXAM: Axial CT scan of the maxillofacial structures without IV contrast. Coronal and sagittal reformations were performed. Auto Exposure Controls were utilized during the CT exam to meet ALARA standards for radiation dose reduction. COMPARISON: Head CT without contrast dated 07/17/2021. FINDINGS: PARANASAL SINUSES: There is no significant high-density material seen in the paranasal sinuses. FRONTAL: There is near-complete consolidation of the left frontal sinus region which has progressed in interim. ETHMOID: There is complete consolidation of the left ethmoid sinus region which has progressed in the interim. There is uhinm-mf-pwcydkai amount of mucosal thickening involving the right ethmoid sinus region noted posteriorly. MAXILLARY: There is complete consolidation of the left maxillary sinus which has progressed. There is minimal mucosal thickening involving the right maxillary sinus. SPHENOID: There is complete consolidation of the sphenoid sinus which has progressed. OTHER PARANASAL SINUS FINDINGS: There is rafita bullosa of the right middle nasal turbinate. There is paradoxical curvature of the left middle nasal turbinate. NASAL SEPTUM: There is 6 mm of rightward nasal septal deviation and a 3 mm rightward nasal septal bony spur. VISUALIZED TEMPORAL BONE STRUCTURES: Unremarkable. BONY STRUCTURES: There are interval bony erosive changes involving the roof of the ethmoid sinus and sphenoid sinus and lateral singh of the sphenoid sinus. There is a cystic area involving a posterior molar tooth of the maxillary left region which appears to have communication to the left maxillary sinus and bony deformity. EXTRACRANIAL SOFT TISSUE/ ORBITS: There is small amount of fat stranding seen in left retromaxillary space. IMPRESSION: 1: There is interval development of severe paranasal sinusitis, predominantly involving the left side more than the right. There are interval bony erosive changes of the paranasal sinus bony singh of the ethmoid sinus and sphenoid sinus regions. There is small amount of fat stranding in the left retromaxillary space region. There is no significant high-density material involving the paranasal sinuses. 2: There are cystic and bony remodeling changes adjacent to a maxillary left molar tooth which appears to communicate with the floor of the left maxillary sinus. 3: There is no significant change in rightward nasal septal deviation with rightward-directed nasal septal bony spur. 4: There is rafita bullosa of the right middle nasal turbinate. There is paradoxical curvature of the left middle nasal turbinate. Dictated by: Dictated on workstation # [id number]
== END ==
LOC: RAD FS 08:39
PROVIDERS: ATTEND Otolaryngology Otolaryngology/Facial Plastic Surgery
DX: J32.9 Chronic sinusitis, unspecified (principal); M85.68 Other cyst of bone, other site
CPT/HCPCS: 70486

== ENCOUNTER 2022-06-24 16:22 | Emergency (ER) | payer MEDICARE, OTHER ==
[2022-06-24] MEDS ORDERED: FLEET ENEMA ADULT 1 EA BTL ONE (16:37)
[2022-06-24] MEDS ORDERED: FLEET ENEMA ADULT 1 EA BTL PR STA (16:51)
[2022-06-24 16:57] VITALS: BP 142/68
--- NOTE | 2022-06-24 17:02 | ED GI ---
General Chief Complaint: Abdominal/GI Problems Stated Complaint: CONSTIPATION Nursing Triage Note: REPORTS NO BM X 4-5 DAYS. Source of Information: Patient, Family History of Present Illness Date Seen by Provider: Jun 24, 2022 Time Seen by Provider: 16:24 Initial Comments 72-year-old male presenting with complaints of constipation with no bowel movement for 4 to 5 days. He did try taking a triple dose of MiraLAX last night as directed by Dr. Fuller. However he has been straining today and feels like there is a softball sized ball of stool that is too hard to come out. He was straining to the point he felt like he might pass out. He has not taken an enema or any other actions to help his bowels move. He has similar issue few weeks ago that improved with MiraLAX but had not taken anything after he had a bowel movement with MiraLAX a few weeks ago. He did not continue any laxatives or stool softeners after that episode. He denies nausea, vomiting, fever, chil ls, headache, shortness of breath. He does have some burning pain to his rectum from straining and trying to take out stool. He has not had any blood. Timing/Duration: 4-5 Days Severity/Quality: Burning (anal pain with pressure) Radiation: No Radiation Associated Symptoms: No Back Pain, No Chest Pain, No Diaphoresis, No Fever/Chills, No Fatigue, No Headache, No Heartburn, No Nausea/Vomiting, No Rash, No Shortness of Air, No Swelling/Mass in Abdomen, No Syncope, No Weakness Allergies and Home Medications Allergies Coded Allergies: Penicillins (Verified Allergy, Unknown, 07/17/21) Patient Home Medication List Home Medication List Reviewed: Yes Atorvastatin Calcium (Atorvastatin Calcium) 40 Mg Tablet, 40 MG PO HS, (Reported) Entered as Reported by: MIMI MOYA on 07/18/21 120 Finasteride (Finasteride) 5 Mg Tablet, 5 MG PO HS, (Reported) Entered as Reported by: MIMI MOYA on 07/18/211201 Latanoprost (Xalatan) 2.5 Ml Drops, 1 DROP OU HS, (Reported) Entered as Reported by: MIMI MOYA on 07/18/21 120 Levothyroxine Sodium (Euthyrox) 150 Mcg Tablet, 150 MCG PO DAILY, (Reported) Entered as Reported by: MIMI MOYA on 07/18/21 1202 Lisinopril (Lisinopril) 20 Mg Tablet, 20 MG PO DAILY Prescribed by: ALONSO HOROWITZ on 07/18/21 1424 Timolol Maleate (Timolol Maleate 0.5%) 5 Ml Drops, 1 DROP OU DAILY, (Reported) Entered as Reported by: MIMI MOYA on 07/18/21 1202 Vit A/Vit C/Vit E/Zinc/Copper (Preservision Areds Tablet) 1 Each Tablet, 1 EACH PO BID, (Reported) Entered as Reported by: MIMI MOYA on 07/18/21 1202 Review of Systems Review of Systems Constitutional: No chills, No fever EENTM: No Symptoms Reported Respiratory: No Symptoms Reported Cardiovascular: No Symptoms Reported Gastrointestinal: See HPI Genitourinary: No Symptoms Reported Musculoskeletal: no symptoms reported Skin: no symptoms reported Psychiatric/Neurological: No Symptoms Reported Past Cepmgtp-Hyuwjk-Vwdtgz Hx Patient Social History Tobacco Use?: No Use of E-Cig and/or Vaping dev: No Substance use?: No Alcohol Use?: No Pt feels they are or have been: No Immunizations Up To Date First/Initial COVID19 Vaccinat: 09/22/20 Second COVID19 Vaccination Familia: OCTOBER 2020 Third COVID19 Vaccination Date: JUNE 2021 Past Medical History Surgery/Hospitalization HX: Hypothyroid, Hypercholesterolemia, Hypertension High Cholesterol, Hypertension Reproductive Disorders: No Benign Prostatic Hyperpl, Neurogenic Bladder Loss of Vision: Denies Hearing Impairment: Denies Family Medical History Cardiovascular disease 19 FATHER Myocardial infarction 19 FATHER Stroke or transient ischemic attack in mother TIAs 19 MOTHER Thyroid disease 19 FATHER Heart Disease Physical Exam Vital Signs Vital Signs - First Documented 06/24/22 16:27 Temp 36.5 Pulse 78 Resp 18 B/P (MAP) 142/68 (92) Pulse Ox 98 O2 Delivery Room Air Capillary Refill : Less Than 3 Seconds Height/Weight/BMI Height: '" Weight: lbs. oz. kg; 26.00 BMI Method: General Appearance: WD/WN, no apparent distress Gastrointestinal: normal bowel sounds, non tender, soft, no pulsatile mass Rectal: normal rectal tone, other (brown colored stool present. fecal impaction broken up and partially removed with digital exam. Patient tolerated well and had a large amount of stool removed from rectum. ) Neurologic/Psychiatric: alert, oriented x 3 Skin: normal color, warm/dry Progress/Results/Core Measures Results/Orders My Orders Orders - KENDALL CHAHAL MD Na Phos/Na Biphos Enema (Fleet Enema Néstor (06/24/22 16:37) Na Phos/Na Biphos Enema (Fleet Enema Néstor (06/24/22 16:51) Vital Signs/I&O 06/24/22 06/24/22 16:27 16:57 Temp 36.5 36.5 Pulse 78 78 Resp 18 18 B/P (MAP) 142/68 (92) 142/68 Pulse Ox 98 98 O2 Delivery Room Air Room Air Blood Pressure Mean: 92 Progress Progress Note : Progress Note Large amount of stool was obtained with digital disimpaction. A fleets enema was then administered which patient was only able to hold for a minute before he felt the sensation of needing to go to the bathroom. When he moved to the commode he had success with a large amount of stool as a bowel movement. He had no bleeding present. He tolerated digital disimpaction and fleets enema well without any immediate complication. He had relief of his rectal pain and pressure. Counseled on management of constipation on a chronic long-term basis and advised to check back with primary care provider for continued concerns. Departure Impression Primary Impression: Fecal impaction in rectum Additional Impression: Constipation by delayed colonic transit Disposition: 01 HOME, SELF-CARE Condition: Stable Departure-Patient Inst. Decision time for Depature: 17:00 Referrals: TERESSA FULLER MD (PCP/Family) Primary Care Physician Patient Instructions: Constipation, Adult ED, Fecal Impaction (DC) Add. Discharge Instructions: Consider taking Miralax 17 grams mixed in 8 ounces of water, juice or liquid of your choice on a daily basis until your stools are more soft and regular. Then you could decrease the Miralax to every other day or 3 times a week as needed to help keep stools soft and regular without getting to the point of being diarrhea. Continue with stool softeners. Drink plenty of fluids and stay well hydrated. Follow up with Dr. Fuller for continued concerns. All discharge instructions reviewed with patient and/or family. Voiced understanding. KENDALL CHAHAL MD Jun 24, 2022 17:02
== END 2022-06-24 17:05 | disposition home or self-care (01) ==
LOC: EDUNIT# 16:22 → ER FS 16:23
DX: K56.41 Fecal impaction (principal)
CPT/HCPCS: 99284

== ENCOUNTER 2022-06-29 09:14 | Emergency (ER) | payer MEDICARE, OTHER ==
--- NOTE | 2022-06-29 09:34 | ED Abdominal Pain ---
General Chief Complaint: Abdominal/GI Problems Stated Complaint: ABD PAIN Nursing Triage Note: RLQ PAIN. HAS BEEN HAVING SOME CONSTIPATION. Source of Information: Patient, Family Exam Limitations: No Limitations History of Present Illness Date Seen by Provider: Jun 29, 2022 Time Seen by Provider: 09:16 Initial Comments 72-year-old male with past medical history of dementia and constipation coming in due to right lower quadrant abdominal pain. Started this morning around 7 AM, was constant, and to him felt like "gas pain". He states it was severe at that time. He was seen in the emergency department for severe constipation 5 days ago. He was digitally disimpacted and an enema was given. He had a very large bowel movement. Since then he continues to have bowel movements about every other day. He had a bowel movement he believes yesterday. Denies any nausea, vomiting, fever, chest pain, shortness of breath, weakness, numbness that is new, or any other concerns. He states when he arrived to the ER, the pain went away completely. He states he has had pain like this in the past when he needed to pass flatus. Allergies and Home Medications Allergies Coded Allergies: Penicillins (Verified Allergy, Unknown, 07/17/21) Uncoded Allergies: SULFA (Allergy, Unknown, 06/29/22) Patient Home Medication List Home Medication List Reviewed: Yes Atorvastatin Calcium (Atorvastatin Calcium) 40 Mg Tablet, 40 MG PO HS, (Reported) Entered as Reported by: MIMI MOYA on 07/18/21 120 Finasteride (Finasteride) 5 Mg Tablet, 5 MG PO HS, (Reported) Entered as Reported by: MIMI MOYA on 07/18/21 120 Latanoprost (Xalatan) 2.5 Ml Drops, 1 DROP OU HS, (Reported) Entered as Reported by: MIMI MOYA on 07/18/21 120 Levothyroxine Sodium (Euthyrox) 150 Mcg Tablet, 150 MCG PO DAILY, (Reported) Entered as Reported by: MIMI MOYA on 07/18/21 120 Lisinopril (Lisinopril) 20 Mg Tablet, 20 MG PO DAILY Prescribed by: ALONSO HOROWITZ on 07/18/21 1424 Timolol Maleate (Timolol Maleate 0.5%) 5 Ml Drops, 1 DROP OU DAILY, (Reported) Entered as Reported by: MIMI MOYA on 07/18/21 120 Vit A/Vit C/Vit E/Zinc/Copper (Preservision Areds Tablet) 1 Each Tablet, 1 EACH PO BID, (Reported) Entered as Reported by: MIMI MOYA on 07/18/21 120 Review of Systems Review of Systems Constitutional: No fever EENTM: Other (Blind at baseline) Respiratory: No Symptoms Reported Cardiovascular: No Symptoms Reported Gastrointestinal: See HPI Genitourinary: No Symptoms Reported Musculoskeletal: no symptoms reported Skin: no symptoms reported Psychiatric/Neurological: No Symptoms Reported Endocrine: No Symptoms Reported Hematologic/Lymphatic: No Symptoms Reported All Other Systems Reviewed Negative Unless Noted: Yes Past Kwlaxse-Paqlud-Modgwn Hx Patient Social History Tobacco Use?: No Use of E-Cig and/or Vaping dev: No Substance use?: No Alcohol Use?: No Pt feels they are or have been: No Immunizations Up To Date First/Initial COVID19 Vaccinat: 09/22/20 Second COVID19 Vaccination Familia: OCTOBER 2020 Third COVID19 Vaccination Date: JUNE 2021 Past Medical History Surgery/Hospitalization HX: Hypothyroid, Hypercholesterolemia, Hypertension Surgeries: Yes (Sinus surgery) High Cholesterol, Hypertension Reproductive Disorders: No Benign Prostatic Hyperpl, Neurogenic Bladder Loss of Vision: Denies Hearing Impairment: Denies Family Medical History Cardiovascular disease 19 FATHER Myocardial infarction 19 FATHER Stroke or transient ischemic attack in mother TIAs 19 MOTHER Thyroid disease 19 FATHER Heart Disease Physical Exam Vital Signs Vital Signs - First Documented 06/29/22 09:25 Temp 36.6 Pulse 65 Resp 18 B/P (MAP) 158/88 (111) Pulse Ox 99 O2 Delivery Room Air Capillary Refill : Less Than 3 Seconds Height/Weight/BMI Height: '" Weight: lbs. oz. kg; 26.00 BMI Method: General Appearance: WD/WN, no apparent distress HEENT: PERRL/EOMI, normal ENT inspection, pharynx normal Neck: non-tender, full range of motion, supple, normal inspection Respiratory: chest non-tender, lungs clear, normal breath sounds, no respiratory distress, no accessory muscle use Cardiovascular: regular rate, rhythm, no edema, no murmur Gastrointestinal: normal bowel sounds, non tender, soft; No distended, No guarding, No rebound, No tenderness Extremities: normal range of motion, non-tender, normal inspection, no pedal edema, no calf tenderness, normal capillary refill Back: normal inspection, no CVA tenderness Neurologic/Psychiatric: no motor/sensory deficits, alert, normal mood/affect Skin: normal color, warm/dry Lymphatic: no adenopathy Progress/Results/Core Measures Results/Orders My Orders Orders - ANTONIO QUACH MD Abdomen Flat & Upright/Decub (06/29/22 09:29) Vital Signs/I&O 06/29/22 09:25 Temp 36.6 Pulse 65 Resp 18 B/P (MAP) 158/88 (111) Pulse Ox 99 O2 Delivery Room Air Blood Pressure Mean: 111 Progress Progress Note : Progress Note 72-year-old male coming in initially for right lower quadrant abdominal pain. ABCs were intact and vitals were stable on presentation. The pain went away completely prior to his arrival to the ER. He states it feels like previous gas pains he has had. His abdomen is soft and he has no reproducible pain at all. He is completely back to his baseline. X-ray obtained to assess for signs of free air which is unlikely versus stool burden versus distended loops of bowel. Diagnostic Imaging Diagonstic Imaging: Xray (abd) Comments NAME: CANDICE QUEZADA MED REC#: [id number] PT STATUS: REG ER : 1950 PHYSICIAN: ANTONIO QUACH MD ADMIT DATE: 06/29/22/ER FS Draft Date of Exam:06/29/22 ABDOMEN FLAT & UPRIGHT/DECUB INDICATION: feels constipated. TECHNIQUE: Supine and upright radiograph of the abdomen 9:46 AM CORRELATION STUDY: None FINDINGS: Rather prominent severity stool retention throughout the colon. No large disproportionate fecal impaction. No abnormally dilated bowel or evidence for air-fluid levels to suggest high degree obstruction. IMPRESSION: 1. Moderate severity constipation. Dictated on workstation # [id number] Dict: 06/29/2251 Trans: 06/29/2253 CV [id number] Interpreted by: HAYLEY OLIVEROS DO Electronically signed by: Departure Impression Primary Impression: RLQ abdominal pain Additional Impression: Constipation Qualified Codes: K59.04 - Chronic idiopathic constipation Disposition: 01 HOME, SELF-CARE Condition: Stable Departure-Patient Inst. Decision time for Depature: 10:00 Referrals: TERESSA JOHNS MD (PCP) Primary Care Physician Patient Instructions: Constipation, Adult ED Add. Discharge Instructions: If your abdominal pain comes back and will not go away with some simple Tylenol or with having a bowel movement/passing flatus, I would recommend coming back to the ER. When she is start having regular bowel movements, I would take the MiraLAX more every other day to 3 times a week. You can also add in if you really need to have a bowel movement some docusate which can be suppository or oral based on how you are buying it. For severe cases you can also try [id number] milk of magnesia if you have normal kidneys which can help as well typically within 24 hours of taking it. ANTONIO QUACH MD Jun 29, 2022 09:34
--- NOTE | 2022-06-29 09:53 | Diagnostic Imaging Report ---
INDICATION: feels constipated. TECHNIQUE: Supine and upright radiograph of the abdomen 9:46 AM CORRELATION STUDY: None FINDINGS: Rather prominent severity stool retention throughout the colon. No large disproportionate fecal impaction. No abnormally dilated bowel or evidence for air-fluid levels to suggest high degree obstruction. IMPRESSION: 1. Moderate severity constipation. Dictated by: Dictated on workstation # [id number]
[2022-06-29 09:57] VITALS: BP 158/88
== END 2022-06-29 09:57 | disposition home or self-care (01) ==
LOC: EDUNIT# 09:14 → ER FS 09:15
DX: K59.00 Constipation, unspecified (principal)
CPT/HCPCS: 74019

== ENCOUNTER 2022-11-30 14:24 | Emergency (ER) | payer MEDICARE, OTHER ==
[~2022-11-30] VITALS: Ht 193 cm; Wt 86.2 kg
[2022-11-30 14:30] VITALS: BP 146/67
[2022-11-30] MEDS ORDERED: FLEET ENEMA ADULT 1 EA BTL PR ONE (15:00)
--- NOTE | 2022-11-30 15:22 | Diagnostic Imaging Report ---
INDICATION: Nearly 1 week post bowel movement. TECHNIQUE: Two supine radiograph of the abdomen 3:06 PM. CORRELATION STUDY: 06/29/2022. FINDINGS: Mild to moderate stool in the distal colon. There is gas-distention of the more proximal colon. Overall severity of stool retention is reduced and less pronounced from prior. No high degree small bowel obstruction. Elevated left diaphragm incompletely visualized and imaged. IMPRESSION: Kdrc-[id number] distal colonic fecal loading. No overt constipation or fecal impaction. Dictated by: Dictated on workstation # [id number]
--- NOTE | 2022-11-30 15:30 | ED GI ---
General Chief Complaint: Abdominal/GI Problems Stated Complaint: CONSTIPATION Nursing Triage Note: Patient reports his last bowel movement was Thursday. He states he had already been taking a stool softener twice daily, states he tried taking miralax on Thursday, and magnesium citrate last night and again this morning. He denies any abdominal pain, nausea/vomiting, or rectal pressure. History of Present Illness Date Seen by Provider: Nov 30, 2022 Time Seen by Provider: 14:35 Initial Comments 72-year-old male with PMH of recently diagnosed Parkinson's/constipation, is here with complaints of constipation since Thursday (6 days). Patient is been taking stool softeners twice a day since he was diagnosed with Parkinson's. Patient took MiraLAX 2 days ago and also took mag citrate last night and today morning, without any resulting bowel movement. Patient denies abdominal pain, gas, nausea and vomiting, fever and chills, chest pain. Patient stated the last time he had constipation he had an impacted stool which had to be disimpacted in the ER, and this occurred last year sometime. Patient has continued to eat 3 meals with no issues or pain. Patient states that he drinks over 8 glasses of water per day. Allergies and Home Medications Allergies Coded Allergies: Penicillins (Verified Allergy, Unknown, 07/17/21) Uncoded Allergies: SULFA (Allergy, Unknown, 06/29/22) Patient Home Medication List Home Medication List Reviewed: Yes Atorvastatin Calcium (Atorvastatin Calcium) 40 Mg Tablet, 40 MG PO HS, (Reported) Entered as Reported by: MIMI MOYA on 07/18/21 120 Finasteride (Finasteride) 5 Mg Tablet, 5 MG PO HS, (Reported) Entered as Reported by: MIMI MOYA on 07/18/211201 Latanoprost (Xalatan) 2.5 Ml Drops, 1 DROP OU HS, (Reported) Entered as Reported by: MIMI MOYA on 07/18/21 120 Levothyroxine Sodium (Euthyrox) 150 Mcg Tablet, 150 MCG PO DAILY, (Reported) Entered as Reported by: MIMI MOYA on 07/18/21 120 Lisinopril (Lisinopril) 20 Mg Tablet, 20 MG PO DAILY Prescribed by: ALONSO HOROWITZ on 07/18/21 8664 Timolol Maleate (Timolol Maleate 0.5%) 5 Ml Drops, 1 DROP OU DAILY, (Reported) Entered as Reported by: MIMI MOYA on 07/18/21 120 Vit A/Vit C/Vit E/Zinc/Copper (Preservision Areds Tablet) 1 Each Tablet, 1 EACH PO BID, (Reported) Entered as Reported by: MIMI MOYA on 07/18/21 1202 Review of Systems Review of Systems Constitutional: no symptoms reported EENTM: No Symptoms Reported Respiratory: No Symptoms Reported Cardiovascular: No Symptoms Reported Gastrointestinal: Constipated Genitourinary: No Symptoms Reported Musculoskeletal: no symptoms reported Skin: no symptoms reported Psychiatric/Neurological: No Symptoms Reported Endocrine: No Symptoms Reported Hematologic/Lymphatic: No Symptoms Reported Past Qnewvhz-Zegblq-Atjzwt Hx Patient Social History Tobacco Use?: No Substance use?: No Alcohol Use?: No Pt feels they are or have been: No Immunizations Up To Date First/Initial COVID19 Vaccinat: 09/22/20 Second COVID19 Vaccination Familia: OCTOBER 2020 Third COVID19 Vaccination Date: JUNE 2021 Past Medical History Surgery/Hospitalization HX: Hypothyroid, Hypercholesterolemia, Hypertension Surgeries: Yes (Sinus surgery) High Cholesterol, Hypertension Reproductive Disorders: No Benign Prostatic Hyperpl, Neurogenic Bladder Loss of Vision: Denies Hearing Impairment: Denies Family Medical History Cardiovascular disease 19 FATHER Myocardial infarction 19 FATHER Stroke or transient ischemic attack in mother TIAs 19 MOTHER Thyroid disease 19 FATHER Heart Disease Physical Exam Vital Signs Vital Signs - First Documented 11/30/22 14:30 Temp 36.7 Pulse 58 Resp 18 B/P (MAP) 146/67 (93) Pulse Ox 98 O2 Delivery Room Air Capillary Refill : Less Than 3 Seconds Height/Weight/BMI Height: '" Weight: lbs. oz. kg; 23.00 BMI Method: General Appearance: WD/WN, no apparent distress HEENT: PERRL/EOMI Neck: full range of motion Respiratory: chest non-tender, lungs clear Cardiovascular: regular rate, rhythm Gastrointestinal: normal bowel sounds, non tender, soft, other (No distention, belly is soft, no tenderness, active bowel sounds heard) Extremities: normal range of motion Back: normal inspection, no CVA tenderness Neurologic/Psychiatric: alert, oriented x 3 Skin: normal color Progress/Results/Core Measures Results/Orders My Orders Orders - DIMITRIOS VERA MD Na Phos/Na Biphos Enema (Fleet Enema Néstor (11/30/22 15:00) Abdomen (Kub) 1 View (11/30/22 14:57) Medications Given in ED Current Medications Medications Dose Ordered Sig/Indu Route Start Time Stop Time Status Last Admin Dose Admin Sodium Biphosphate/ Sodium Phosphate 1 ea ONCE ONCE OK 11/30/22 15:00 11/30/22 15:01 DC 11/30/22 15:25 1 EA Vital Signs/I&O 11/30/22 14:30 Temp 36.7 Pulse 58 Resp 18 B/P (MAP) 146/67 (93) Pulse Ox 98 O2 Delivery Room Air Blood Pressure Mean: 93 Progress Progress Note : Progress Note 1. CONSTIPATION: - KUB: Ppnj-tk-cmhovtfp distal colonic fecal loading. No overt constipation or fecal impaction. - Fleet enema STAT - Pt had a bowel movement in the ER after getting enema. - Advised high-fiber diet, increase stool softener to 3 times a day, take miralax once daily for the next 6 days. Use suppositories as needed. - Adequate hydration - Follow up with PCP in the next 3 to 7 days -Patient was ruled out for obstruction and impaction of stool. Patient will be following up with his neurologist since constipation is associated with Parkinson's as well. -The patient was seen in the ED, and treated appropriately to presentation at a specific point in time. Patient is informed that there is a possibility that disease and illness can evolve and change in acuity rapidly or slowly after patient is discharged from the ER. Precautionary advice given to the patient for immediate return to ER if symptoms worsen or do not resolve, and to seek emergency care sooner rather than later. Pt also advised on the importance of PCP follow up and compliance with management and follow up plan with PCP and/or specialist, as this is part of the management plan. Pt verbally expressed understanding. Diagnostic Imaging Diagonstic Imaging: Xray Plain Films/CT/US/NM/MRI: abdomen Comments [facility] [place], [place] NAME: DAMIENCANDICE Audrey MED REC#: [id number] PT STATUS: REG ER : 1950 PHYSICIAN: DIMITRIOS VERA MD ADMIT DATE: 11/30/22/ER FS Draft Date of Exam:11/30/22 ABDOMEN (KUB) 1 VIEW INDICATION: Nearly 1 week post bowel movement. TECHNIQUE: Two supine radiograph of the abdomen 3:06 PM. CORRELATION STUDY: 06/29/2022. FINDINGS: Mild to moderate stool in the distal colon. There is gas-distention of the more proximal colon. Overall severity of stool retention is reduced and less pronounced from prior. No high degree small bowel obstruction. Elevated left diaphragm incompletely visualized and imaged. IMPRESSION: Rggy-cb-jvntxiwg distal colonic fecal loading. No overt constipation or fecal impaction. Dictated on workstation # [id number] Dict: 11/30/22 1511 Trans: 11/30/22 1521 [facility] [id number] Interpreted by: HAYLEY OLIVEROS DO Electronically signed by: Departure Impression Primary Impression: Constipation Qualified Codes: K59.00 - Constipation, unspecified Disposition: 01 HOME, SELF-CARE Condition: Improved Departure-Patient Inst. Referrals: SELFTERESSA MD (PCP/Family) Primary Care Physician Patient Instructions: Constipation, Adult (DC), Constipation in Adults Add. Discharge Instructions: - Advised high-fiber diet, increase stool softener to 3 times a day, take miralax once daily for the next 6 days. Use suppositories as needed. - Adequate hydration - Follow up with PCP and neurologist in the next 3 to 7 days All discharge instructions reviewed with patient and/or family. Voiced understanding. DIMITRIOS VERA MD Nov 30, 2022 15:30
== END 2022-11-30 16:20 | disposition home or self-care (01) ==
LOC: EDUNIT# 14:24 → ER FS 14:25
DX: K59.00 Constipation, unspecified (principal)
CPT/HCPCS: 74018

== ENCOUNTER 2023-02-11 14:19 | Emergency (ER) | payer MEDICARE, OTHER ==
[~2023-02-11] VITALS: Ht 193 cm; Wt 86.2 kg
[~2023-02-11 14:19] MED LIST changes: +TIMO5DRO16 OU; -TIMO5DRO5 OU
[2023-02-11 14:30] VITALS: BP 161/98
--- NOTE | 2023-02-11 15:09 | ED General ---
General Chief Complaint: General Problems/Pain Stated Complaint: SUPRAPUBIC BULGE/PAIN Nursing Triage Note: PT AMBULATE TO ROOM FSOF WITHOUT DIFFICULTY WITH C/O "BULGE" ON RIGHT GROIN AREA STARTING AT 1130 TODAY. Source of Information: Patient, Spouse History of Present Illness Date Seen by Provider: Feb 11, 2023 Time Seen by Provider: 15:06 Initial Comments 72-year-old male presenting with complaints of a painful bulge to the right groin. He has had this happen previously but usually he can lay down and the bulge goes away and it is not painful. He has been having more issues with constipation due to his Parkinson's recently. He has had hard stools and had to strain a lot in the last few days. He denies any heavy lifting. Today he had been taking his shower when he had developed the painful area of bulging. He did not have any nausea or vomiting with this. He denies any fever or chills. He continues to be able to urinate and was having no difficulty with that. Since the bulge was painful and not going back down he came to be evaluated as he was not sure what it was or what was making it hurt so much today. It first bulged out today around 1130 and has not really gotten smaller or less painful since then. Severity: Moderate Associated Systoms: No Chest Pain, No Cough, No Diaphoresis, No Fever/Chills, No Headaches, No Loss of Appetite, No Malaise, No Nausea/Vomiting, No Rash, No Seizure, No Shortness of Air, No Syncope Allergies and Home Medications Allergies Coded Allergies: Penicillins (Verified Allergy, Unknown, 07/17/21) Uncoded Allergies: SULFA (Allergy, Unknown, 06/29/22) Patient Home Medication List Home Medication List Reviewed: Yes Atorvastatin Calcium (Atorvastatin Calcium) 40 Mg Tablet, 40 MG PO HS, (Reported) Entered as Reported by: MIMI MOYA on 07/18/21 120 Finasteride (Finasteride) 5 Mg Tablet, 5 MG PO HS, (Reported) Entered as Reported by: MIMI MOYA on 07/18/211201 Latanoprost (Xalatan) 2.5 Ml Drops, 1 DROP OU HS, (Reported) Entered as Reported by: MIMI MOYA on 07/18/211201 Levothyroxine Sodium (Euthyrox) 150 Mcg Tablet, 150 MCG PO DAILY, (Reported) Entered as Reported by: MIMI MOYA on 07/18/21 1202 Lisinopril (Lisinopril) 20 Mg Tablet, 20 MG PO DAILY Prescribed by: ALONSO HOROWITZ on 07/18/21 1424 Timolol Maleate (Timolol Maleate 0.5%) 5 Ml Drops, 1 DROP OU DAILY, (Reported) Entered as Reported by: MIMI MOYA on 07/18/21 1202 Vit A/Vit C/Vit E/Zinc/Copper (Preservision Areds Tablet) 1 Each Tablet, 1 EACH PO BID, (Reported) Entered as Reported by: MIMI MOYA on 07/18/21 1202 Review of Systems Review of Systems Constitutional: No chills, No fever EENTM: no symptoms reported Respiratory: no symptoms reported Cardiovascular: no symptoms reported Gastrointestinal: see HPI Genitourinary: no symptoms reported Musculoskeletal: no symptoms reported Skin: lesions (He had a new brown colored papule on right posterior shoulder that had popped up in the last few days. It is not p ainful and not draining. ) Psychiatric/Neurological: No Symptoms Reported Past Yhecixh-Rkmzsd-Ouimtn Hx Patient Social History Tobacco Use?: No Smoking Status: Never a Smoker Smokeless Tobacco Frequency: Never a User Use of E-Cig and/or Vaping dev: No Use of E-Cig and/or Vaping Jorge: Never a User Substance use?: No Alcohol Use?: No Pt feels they are or have been: No Immunizations Up To Date First/Initial COVID19 Vaccinat: 09/22/20 Second COVID19 Vaccination Familia: OCTOBER 2020 Third COVID19 Vaccination Date: JUNE 2021 Past Medical History Surgery/Hospitalization HX: Hypothyroid, Hypercholesterolemia, Hypertension, Parkinsons, Right Inguinal Hernia Surgeries: Yes (Sinus surgery) High Cholesterol, Hypertension Reproductive Disorders: No Benign Prostatic Hyperpl, Neurogenic Bladder Loss of Vision: Denies Hearing Impairment: Denies Family Medical History Cardiovascular disease 19 FATHER Myocardial infarction 19 FATHER Stroke or transient ischemic attack in mother TIAs 19 MOTHER Thyroid disease 19 FATHER Heart Disease Physical Exam Vital Signs Vital Signs - First Documented 02/11/23 14:30 Temp 36.2 Pulse 61 Resp 17 B/P (MAP) 161/98 (119) O2 Delivery Room Air Capillary Refill : Less Than 3 Seconds Height, Weight, BMI Height: '" Weight: lbs. oz. kg; 23.00 BMI Method: General Appearance: No Apparent Distress, WD/WN Respiratory: Chest Non Tender, Lungs Clear, Normal Breath Sounds Cardiovascular: Regular Rate, Rhythm, Normal Peripheral Pulses Gastrointestinal: Normal Bowel Sounds, No Pulsatile Mass, Non Tender, Soft Genital/Rectal: Other (right inguinal hernia mass present that was bulging out and tender to touch initially. with gentle steady pressure there was a gas bubble that moved and the hernia reduced and became soft and flat. He had pain resolve with reduction of the hernia) Neurologic/Psychiatric: Alert, Oriented x3 Skin: Warm/Dry, Other (Brown-colored papule that is approximately 3 mm across and 4 mm high on the right upper posterior shoulder that appears consistent with an inclusion cyst. He has normal induration, fluctuance, drainage, erythema around it) Progress/Results/Core Measures Suspected Sepsis SIRS Temperature: Pulse: 61 Respiratory Rate: 17 Blood Pressure 161 /98 Mean: 119 Results/Orders Lab Results Laboratory Tests Test 02/11/23 15:08 Range/Units Urine Color YELLOW Urine Clarity CLEAR Urine pH 7.0 5-9 Urine Specific Brandon 1.010 L 1.016-1.022 Urine Protein NEGATIVE NEGATIVE Urine Glucose (UA) NEGATIVE NEGATIVE Urine Ketones NEGATIVE NEGATIVE Urine Nitrite NEGATIVE NEGATIVE Urine Bilirubin NEGATIVE NEGATIVE Urine Urobilinogen 0.2 < = 1.0 MG/DL Urine Leukocyte Esterase NEGATIVE NEGATIVE Urine RBC (Auto) NEGATIVE NEGATIVE Urine RBC RARE /HPF Urine WBC NONE /HPF Urine Squamous Epithelial Cells RARE /HPF Urine Crystals NONE /LPF Urine Bacteria NEGATIVE /HPF Urine Casts NONE /LPF Urine Mucus NEGATIVE /LPF Urine Culture Indicated NO My Orders Orders - KENDALL CHAHAL MD Ua Culture If Indicated (02/11/23 14:34) Vital Signs/I&O 02/11/23 14:30 Temp 36.2 Pulse 61 Resp 17 B/P (MAP) 161/98 (119) O2 Delivery Room Air Capillary Refill : Less Than 3 Seconds Blood Pressure Mean: 119 Progress Note : Progress Note Reassured patient that the inguinal hernia easily reduced and he did not require any other emergent treatment currently. Counseled on following up with a surge on to discuss risk versus benefit for possible inguinal hernia repair. Also counseled on warning and returning signs if he had continued pain and swelling and the hernia was not reducing with laying down and applying gentle steady pressure. If he has fever, nausea, vomiting, painful swollen hernia he would need to be seen emergently as he may have to go to surgery to have that re paired. In regards to the area on his right upper posterior shoulder it appears to be more of an inclusion cyst and he could try applying some warm heat to it to see if that would get it to resolve. If it becomes painful or starts draining then the clinic or surgeon may need to cut the area out. I did speak with the general surgeon on-call, Dr. Donaldson. He advised that he was out of the office this next week but he could see the patient on February 23 at 9:30 AM. I provided the patient and spouse with this information and asked them to call and make sure the clinic as her insurance information and everything they need to be able to be seen. I also requested that if they were going to cancel the appointment or needed to reschedule it to call the general clinic number so they can do that. Since he has his specialty care with Parkinson's and urology at [facility] they were asking if they needed to go there to be seen. I told him if they just wanted to talk to her surgeon and review some risks versus benefits about having surgery or repair of the inguinal hernia done the could certainly reach out to Dr. Donaldson and keep that appointment. If he felt that it was more benefit than risk and was something that could be done at [facility] then he could certainly arrange that and if he felt like it was something that had more risks and would require the backup of the neurology and urology doctors at then he would also be upfront with them about that. Departure Impression Primary Impression: Right inguinal hernia Additional Impression: Constipation by delayed colonic transit Disposition: 01 HOME, SELF-CARE Condition: Stable Departure-Patient Inst. Decision time for Depature: 15:39 Referrals: SINDI DONALDSON MAXWELL MD (PCP/Family) Primary Care Physician Patient Instructions: Constipation, Adult ED, Groin Hernia (DC), Hernia Repair (DC) Add. Discharge Instructions: Dr. Donaldson, General Surgeon at [facility], could see you at 930 am on ThursdayFebruary 23. If you would call the clinic you could make sure they have your insurance information and see if there is anything else they need before the appointment. Also call the clinic if you are not going to be able to make that appointment so you could reschedule or cancel it. Alternatively you could check with providers at [facility] to see if they could get you in with a surgeon there to discuss possible repair or inguinal hernia. If you have the hernia bulging out again and it is painful then you should lay back and see if it would go back down. If that does not make the hernia reduce or get small and soft again then try applying steady gentle pressure in an upward direction towards your belly to see if that will get it to reduce or get small and soft again. If none of this is helping and it is staying bulging and painful, especially if you also have nausea and vomiting or fever over 101 F then you need to be seen right away as you may have to emergently go to surgery if it can not be reduced. Make sure you are drinking plenty of water and staying well-hydrated. Continue on your stool softeners but also continue on the MiraLAX to help keep your stools soft and more regular so you are not having to strain so hard. All discharge instructions reviewed with patient and/or family. Voiced understanding. Copy Copies To 1: SINDI DONALDSON DO Copies To 2: TERESSA JOHNS MD, MARC E MD Feb 11, 2023 15:09
[2023-02-11 15:17] LABS: BILIRUBIN,URINE NEGATIVE (NEGATIVE); CLARITY,URINE CLEAR; COLOR,URINE YELLOW; GLUCOSE, URINE (UA) NEGATIVE (NEGATIVE); KETONES,URINE NEGATIVE (NEGATIVE); LEUKOCYTE ESTERASE ,URINE NEGATIVE (NEGATIVE); NITRITE,URINE NEGATIVE (NEGATIVE); PROTEIN,URINE NEGATIVE (NEGATIVE)
[2023-02-11 15:29] LABS: BACTERIA,URINE NEGATIVE /HPF; RBC,URINE RARE /HPF; SQUAMOUS EPITHELIAL CELL,UR RARE /HPF
== END 2023-02-11 15:50 | disposition home or self-care (01) ==
LOC: EDUNIT# 14:19 → ER FS 14:20
DX: K40.90 Unilateral inguinal hernia, without obstruction or gangrene, not specified as recurrent (principal); K59.01 Slow transit constipation
CPT/HCPCS: 81000; 99282

== ENCOUNTER 2023-04-03 21:05 | Emergency (ER) | payer MEDICARE, OTHER ==
[~2023-04-03] VITALS: Ht 193 cm; Wt 89.5 kg
[2023-04-03] MEDS ORDERED: Sodium Phosphate/Sodium Biphosphate ADULT enema PR ONE (22:15)
[2023-04-03 22:28] VITALS: BP 179/96
--- NOTE | 2023-04-03 22:28 | ED GI ---
General Chief Complaint: Abdominal/GI Problems Stated Complaint: NO BOWEL MOVEMENT FOR A WEEK Nursing Triage Note: Patient states that he went to his primary doctor for constipation. Patient hasn't had a bowel movement since Thursday or Thursday. His primary advised him to take 6 scoops of Mirilax and 2 dolculax. Patient reports that he had very little results. Source of Information: Patient, Family (), Care Home Records, Old Records Exam Limitations: No Limitations History of Present Illness Date Seen by Provider: Apr 03, 2023 Time Seen by Provider: 21:30 Initial Comments 73-year-old male patient with history of hypertension, hypothyroidism, Parkinson's legally blindness and chronic constipation presented POV with his with complaining of constipation and not having a bowel movement for 6 or 7 days. Patient took 6 scoop of MiraLAX and 2 Dulcolax per recommendation of his primary care physician and had very little result. Patient denies nausea and vomiting, fever and chills, urinary symptoms. Patient stated he had intermittent episodes of abdominal pain but denies abdominal pain at arrival to ER. Patient had previous ER visit with constipation and fecal impaction. Allergies and Home Medications Allergies Coded Allergies: Penicillins (Verified Allergy, Unknown, 07/17/21) Uncoded Allergies: SULFA (Allergy, Unknown, 06/29/22) Patient Home Medication List Home Medication List Reviewed: Yes Atorvastatin Calcium (Atorvastatin Calcium) 40 Mg Tablet, 40 MG PO HS, (Reported) Entered as Reported by: MIMI MOYA on 07/18/21 120 Finasteride (Finasteride) 5 Mg Tablet, 5 MG PO HS, (Reported) Entered as Reported by: MIMI MOYA on 07/18/21 120 Latanoprost (Xalatan) 2.5 Ml Drops, 1 DROP OU HS, (Reported) Entered as Reported by: MIMI MOYA on 07/18/21 120 Levothyroxine Sodium (Euthyrox) 150 Mcg Tablet, 150 MCG PO DAILY, (Reported) Entered as Reported by: MIMI MOYA on 07/18/211201 Lisinopril (Lisinopril) 20 Mg Tablet, 20 MG PO DAILY Prescribed by: ALONSO HOROWITZ on 07/18/21 142 Timolol Maleate (Timolol Maleate 0.5%) 5 Ml Drops, 1 DROP OU DAILY, (Reported) Entered as Reported by: MIMI MOYA on 07/18/21 120 Vit A/Vit C/Vit E/Zinc/Copper (Preservision Areds Tablet) 1 Each Tablet, 1 EACH PO BID, (Reported) Entered as Reported by: MIMI MOYA on 07/18/21 120 Review of Systems Review of Systems Constitutional: no symptoms reported EENTM: See HPI Respiratory: No Symptoms Reported Cardiovascular: No Symptoms Reported Gastrointestinal: See HPI Genitourinary: No Symptoms Reported Musculoskeletal: no symptoms reported Skin: no symptoms reported Psychiatric/Neurological: No Symptoms Reported Endocrine: No Symptoms Reported Hematologic/Lymphatic: No Symptoms Reported All Other Systems Reviewed Negative Unless Noted: Yes Past Zxflahw-Ncmlby-Zvwbnj Hx Patient Social History Tobacco Use?: No Substance use?: No Alcohol Use?: No Pt feels they are or have been: No Immunizations Up To Date First/Initial COVID19 Vaccinat: 09/22/20 Second COVID19 Vaccination Familia: OCTOBER 2020 Third COVID19 Vaccination Date: JUNE 2021 Past Medical History Surgery/Hospitalization HX: Hypothyroid, Hypercholesterolemia, Hypertension, Parkinsons, Right Inguinal Hernia Surgeries: Yes (Sinus surgery) High Cholesterol, Hypertension Reproductive Disorders: No Benign Prostatic Hyperpl, Neurogenic Bladder Loss of Vision: Denies Hearing Impairment: Denies Family Medical History Cardiovascular disease 19 FATHER Myocardial infarction 19 FATHER Stroke or transient ischemic attack in mother TIAs 19 MOTHER Thyroid disease 19 FATHER Heart Disease Physical Exam Vital Signs Vital Signs - First Documented 04/03/23 21:08 Temp 36.4 Pulse 77 Resp 16 B/P (MAP) 179/96 (123) Pulse Ox 98 O2 Delivery Room Air Capillary Refill : Less Than 3 Seconds Height/Weight/BMI Height: '" Weight: lbs. oz. kg; 24.00 BMI Method: General Appearance: mild distress HEENT: PERRL/EOMI Neck: non-tender Respiratory: chest non-tender, lungs clear, normal breath sounds, no respiratory distress, no accessory muscle use Cardiovascular: regular rate, rhythm, no edema, no gallop Gastrointestinal: non tender, soft, no organomegaly, no pulsatile mass, abnormal bowel sounds (Increase), hernia (Reducible right inguinal hernia wit hout) Rectal: other (Rectal exam in presence of candy catcher showed normal external, fecal impaction that was breakdown with manipulation.) Extremities: normal range of motion, non-tender Neurologic/Psychiatric: alert, oriented x 3 Skin: normal color Progress/Results/Core Measures Results/Orders My Orders Orders - DELORIS ZENG MD Na Phos/Na Biphos Adult Enema (Na Phos/N (04/03/23 22:15) Medications Given in ED Current Medications Medications Dose Ordered Sig/Indu Route Start Time Stop Time Status Last Admin Dose Admin Sodium Biphosphate/ Sodium Phosphate 1 ea ONCE ONCE DE 04/03/23 22:15 04/03/23 22:16 DC 04/03/23 22:10 1 EA Vital Signs/I&O 04/03/23 04/03/23 21:08 22:28 Temp 36.4 Pulse 77 77 Resp 16 16 B/P (MAP) 179/96 (123) 179/96 Pulse Ox 98 98 O2 Delivery Room Air Room Air Blood Pressure Mean: 123 Progress Progress Note : Progress Note Patient with history of chronic constipation with complaining of constipation for several days. Patient had fecal impaction and after manipulation and breakdown the impaction failed enema was given and patient had a good bowel movement and felt better. Patient advised to take 2 scoop of MiraLAX for the next 3 days beside his usual constipation medication and follow-up with primary care physician for chronic constipation Departure Impression Primary Impression: Constipation Qualified Codes: K59.00 - Constipation, unspecified Additional Impression: Fecal impaction in rectum Disposition: 01 HOME, SELF-CARE Condition: Improved Departure-Patient Inst. Decision time for Depature: 22:26 Referrals: SELFTERESSA MD (PCP/Family) Primary Care Physician Patient Instructions: Fecal Impaction (DC), Constipation, Adult ED Add. Discharge Instructions: Continue home medication Follow-up with your primary care physician in 3 to 5 days Return to ER as needed Take MiraLAX 2 scoops daily for the next 3 days All discharge instructions reviewed with patient and/or family. Voiced understanding. DELORIS ZENG MD Apr 03, 2023 22:28
== END 2023-04-03 22:29 | disposition home or self-care (01) ==
LOC: EDUNIT# 21:05 → ER FS 21:07
DX: K59.00 Constipation, unspecified (principal); Z87.19 Personal history of other diseases of the digestive system
CPT/HCPCS: 99281

== ENCOUNTER 2023-04-05 19:16 | Emergency (ER) | payer MEDICARE, OTHER ==
[2023-04-05 19:29] VITALS: BP 164/100
--- NOTE | 2023-04-05 19:30 | ED General ---
General Chief Complaint: General Problems/Pain Stated Complaint: HERNIA Source of Information: Patient, Old Records Exam Limitations: No Limitations History of Present Illness Date Seen by Provider: Apr 05, 2023 Time Seen by Provider: 19:18 Initial Comments 72-year-old male with past medical history of inguinal hernia on the right side coming in due to concerns for it sticking out. He has surgery scheduled next month and a couple of weeks to have it repaired. He has been in the ER for it sticking out before and he has been taught how to get it back in. A couple hours ago it came out to the point where he was unable to get it in. He is passing gas and having bowel movements with no nausea or vomiting. He is otherwise denying any other acute complaints and denies any skin changes around it. Allergies and Home Medications Allergies Coded Allergies: Penicillins (Verified Allergy, Unknown, 07/17/21) Uncoded Allergies: SULFA (Allergy, Unknown, 06/29/22) Patient Home Medication List Home Medication List Reviewed: Yes Atorvastatin Calcium (Atorvastatin Calcium) 40 Mg Tablet, 40 MG PO HS, (Reported) Entered as Reported by: MIMI MOYA on 07/18/211201 Finasteride (Finasteride) 5 Mg Tablet, 5 MG PO HS, (Reported) Entered as Reported by: MIMI MOYA on 07/18/211201 Latanoprost (Xalatan) 2.5 Ml Drops, 1 DROP OU HS, (Reported) Entered as Reported by: MIMI MOYA on 07/18/211201 Levothyroxine Sodium (Euthyrox) 150 Mcg Tablet, 150 MCG PO DAILY, (Reported) Entered as Reported by: MIMI MOYA on 07/18/21 120 Lisinopril (Lisinopril) 20 Mg Tablet, 20 MG PO DAILY Prescribed by: ALONSO HOROWITZ on 07/18/21 1424 Timolol Maleate (Timolol Maleate 0.5%) 5 Ml Drops, 1 DROP OU DAILY, (Reported) Entered as Reported by: MIMI MOYA on 07/18/211201 Vit A/Vit C/Vit E/Zinc/Copper (Preservision Areds Tablet) 1 Each Tablet, 1 EACH PO BID, (Reported) Entered as Reported by: MIMI MOYA on 07/18/211201 Review of Systems Review of Systems Constitutional: No fever EENTM: no symptoms reported Respiratory: no symptoms reported Cardiovascular: no symptoms reported Gastrointestinal: see HPI Genitourinary: no symptoms reported Musculoskeletal: no symptoms reported Skin: no symptoms reported Past Mcqhnkj-Ktegxt-Dktuvq Hx Patient Social History Tobacco Use?: No Substance use?: No Alcohol Use?: No Pt feels they are or have been: No Immunizations Up To Date First/Initial COVID19 Vaccinat: 09/22/20 Second COVID19 Vaccination Familia: OCTOBER 2020 Third COVID19 Vaccination Date: JUNE 2021 Past Medical History Surgery/Hospitalization HX: Hypothyroid, Hypercholesterolemia, Hypertension, Parkinsons, Right Inguinal Hernia Surgeries: Yes (Sinus surgery) High Cholesterol, Hypertension Reproductive Disorders: No Benign Prostatic Hyperpl, Neurogenic Bladder Loss of Vision: Denies Hearing Impairment: Denies Family Medical History Cardiovascular disease 19 FATHER Myocardial infarction 19 FATHER Stroke or transient ischemic attack in mother TIAs 19 MOTHER Thyroid disease 19 FATHER Heart Disease Physical Exam Vital Signs Capillary Refill : Height, Weight, BMI Height: '" Weight: lbs. oz. kg; 24.00 BMI Method: General Appearance: No Apparent Distress, WD/WN Eyes: Bilateral Eye Normal Inspection HEENT: PERRL/EOMI, Normal ENT Inspection, Pharynx Normal Neck: Full Range of Motion, Normal Inspection, Non Tender, Supple Respiratory: Chest Non Tender, Lungs Clear, Normal Breath Sounds, No Accessory Muscle Use, No Respiratory Distress Cardiovascular: Regular Rate, Rhythm, Normal Peripheral Pulses Gastrointestinal: Normal Bowel Sounds, Soft, Hernia (Incarcerated right inguinal hernia) Back: Normal Inspection Extremity: Normal Capillary Refill, Normal Inspection, Normal Range of Motion, Non Tender, No Calf Tenderness Neurologic/Psychiatric: Alert, No Motor/Sensory Deficits, Normal Mood/Affect Skin: Normal Color, Warm/Dry Procedures/Interventions Gentle pressure was applied to the right inguinal hernia for 1 minute and it reduced spontaneously without issue, patient tolerated this well, no skin c hanges that would be concerning for strangulated hernia. Progress/Results/Core Measures Suspected Sepsis SIRS Temperature: Pulse: Respiratory Rate: Blood Pressure / Mean: Results/Orders Vital Signs/I&O Capillary Refill : Progress Note : Progress Note 72-year-old male presenting with an incarcerated hernia. ABCs were intact and vitals were stable on presentation. Physical exam with the aformentioned incarcerated hernia. No physical exam or clinical signs of strangulated hernia. No clinical signs of obstruction as well. I was able to easily reduce it and teach him how to do it as well. I believe he is stable for discharge with outpatient follow-up. He was sent home with strict return precautions. Departure Impression Primary Impression: Incarcerated hernia Disposition: HOME, SELF-CARE Condition: Improved Departure-Patient Inst. Decision time for Depature: 19:30 Referrals: SELF,TERESSA [facility] (PCP/Family) Primary Care Physician Patient Instructions: Abdominal Hernia (DC) Add. Discharge Instructions: You had what is called an incarcerated hernia that was having a difficult time getting back into place. You can apply pressure to the area if this happens again. If that does not work you can put ice on it to help constrict the area before applying pressure again. If you get to the point where there are skin changes where your skin is really dark and dusky and pain is a lot worse with that, we will need to be evaluated by doctor again. ANTONIO QUACH MD Apr 05, 2023 19:30
== END 2023-04-05 19:31 | disposition home or self-care (01) ==
LOC: EDUNIT# 19:16 → ER FS 19:17
DX: K46.0 Unspecified abdominal hernia with obstruction, without gangrene (principal)
CPT/HCPCS: 99281

== ENCOUNTER 2023-04-16 06:54 | Outpatient (CLI) | payer MEDICARE, OTHER ==
[~2023-04-16] VITALS: Ht 193 cm; Wt 86.4 kg
[2023-04-17] MEDS ORDERED: TADA10TA14 PO (11:34)
[2023-04-17] MEDS ORDERED: MELA10CA2 PO (11:34)
[2023-04-17] MEDS ORDERED: BUSP10TA95 PO (11:34)
[2023-04-17] MEDS ORDERED: DOCU-143 PO (11:34)
[2023-04-17] MEDS ORDERED: PROP8DRO2 OP (11:34)
[2023-04-17] MEDS ORDERED: CARB1DRO5 OP (11:34)
[2023-04-17] MEDS ORDERED: ACET325C7 PO (11:34)
[2023-04-17] MEDS ORDERED: BRIM5DRO3 OP (11:34)
[2023-04-17] MEDS ORDERED: CALC-783 PO (11:34)
[2023-04-17] MEDS ORDERED: CARB1TAB44 PO (11:34)
== END 2023-04-17 12:20 | disposition home or self-care (01) ==
LOC: PREOP 06:54
PROVIDERS: ATTEND Surgery
DX: Z01.818 Encounter for other preprocedural examination (principal)

== ENCOUNTER 2023-04-23 07:27 | Day surgery (SDC) | payer MEDICARE, OTHER ==
[2023-04-23] VITALS (8 sets, daily range): BP systolic 138–153; BP diastolic 71–86
[~2023-04-23] VITALS: Ht 193 cm; Wt 86.4 kg
[~2023-04-23 07:27] MED LIST changes: +ACET325C7 PO; +BRIM5DRO3 OP; +BUSP10TA95 PO; +CALC-783 PO; +CARB1DRO5 OP; +CARB1TAB44 PO; +DOCU-143 PO; +MELA10CA2 PO; +PROP8DRO2 OP; +TADA10TA14 PO
[2023-04-23] MEDS ORDERED: LIDOCAINE/EPI 1%-1:200,000 (XYLOCAINE) 30 ML VIAL ONE (07:31)
[2023-04-23] MEDS ORDERED: CLINDAMYCIN 600 MG/50 ML IVPB 50 ML IV ONE (07:45)
--- NOTE | 2023-04-23 07:55 | Progress Note-Pre Operative ---
Pre-Operative Progress Note Date H&P Reviewed: Apr 23, 2023 Time H&P Reviewed: 07:55 History & Physical: H&P Reviewed, Patient Examed, No changes noted Pre-Operative Diagnosis: right inguinal hernia SINDI DONALDSON DO Apr 23, 2023 07:55
[2023-04-23] MEDS ORDERED: SEVOFLURANE (ULTANE) 15 ML INHAL SOLN ONE ×3 (08:00→11:24)
[2023-04-23] MEDS ORDERED: fentaNYL INJECTION 100 MCG/2 ML VIAL ONE ×2 (08:00→12:08)
[2023-04-23] MEDS ORDERED: ONDANSETRON INJECTION 4 MG/2 ML (SDV) ONE (08:00)
[2023-04-23] MEDS ORDERED: proPOfol INJECTION 200 MG/20 ML VIAL IV ONE (08:00)
[2023-04-23] MEDS ORDERED: LIDOCAINE PF 2% 5 ML VIAL ONE (08:00)
[2023-04-23] MEDS ORDERED: MIDAZOLAM INJ 2 MG/2 ML VIAL IVP ONE (08:15)
[2023-04-23] MEDS ORDERED: MIDAZOLAM INJ 2 MG/2 ML VIAL ONE (08:17)
[2023-04-23] MEDS: LACTATED RINGERS 1,000 ML 1,000 ML IV PRN ×2 (08:20→10:00)
[2023-04-23] MEDS ORDERED: LIDOCAINE/EPI 1%-1:200,000 (XYLOCAINE) 30 ML VIAL INJ ONE (10:13)
[2023-04-23] MEDS ORDERED: ACHD5005 PO (11:29)
--- NOTE | 2023-04-23 11:30 | Discharge Inst-Simple/Standard ---
Discharge Inst-Standard Discharge Medications New, Converted or Re-Newed RX: Transmitted to Pharmacy Patient Instructions/Follow Up Plan of Care/Instructions/FU: 2 weeks Veronica Activity as Tolerated: No Discharge Diet: Regular Diet Other Inst to Patient Follow up Appt: Make appointment for 2 week. Instructions: No lifting greater than 10 pounds. No strenuous activity. May shower in 24 hours, no tub bath or soaking. Use incentive spirometer at home as directed. No Smoking Skin/Wound Care: You have special glue over your incision that will fall off on it's own. Symptoms to Report: Appetite Changes, Extremity Discoloration, Numbness/Tingling, Swelling Increased, Bleeding Excessive, Eyesight Changes, Pain Increased, Urine Color Change, Constipation(Persistent), Fever over 101 degree F, Pain/Pressure in chest, Urinating Difficulty, Cough Up/Vomit Blood, Heart Beat Irreg/Pounding, Pain/Pressure in jaw, Vaginal Bleeding Increase, Cramps in feet or legs, Lightheadedness, Pain/Pressure in shoulder, Diarrhea(Persistent), Memory Changes Suddenly, Questions/Concerns, Weight gain consecutive days, Dizziness/Fainting, Nausea/Vomiting, Shortness of Breath, Weight gain over 2 pounds If questions or concerns contact your physician Or seek help at emergency department. SINDI DONALDSON DO Apr 23, 2023 11:30
--- NOTE | 2023-04-23 11:32 | Progress Note-Post Operative ---
Post-Operative Progess Note Surgeon (s)/Front Office Assistant (s) Surgeon SINDI DONALDSON DO Front Office Assistant: Dr. Li to assist in retraction dissection and closure. Pre-Operative Diagnosis right inguinal hernia Post-Operative Diagnosis same Procedure & Operative Findings Date of Procedure 04/23/23 Procedure Performed/Findings robotic right inguinal hernia repair c mesh and excision of cord lipoma Anesthesia Type general Estimated Blood Loss Estimated blood loss (mL): minimal Specimens/Packing Specimens Removed cord lipoma SINDI DONALDSON DO Apr 23, 2023 11:32
--- NOTE | 2023-04-23 11:33 | Anesthesia-General Post-Op ---
General Patient Condition Mental Status/LOC: Same as Preop Cardiovascular: Satisfactory Nausea/Vomiting: Absent Respiratory: Satisfactory Pain: Controlled Complications: Absent Post Op Complications Complications None Follow Up Care/Instructions Patient Instructions None needed. Anesthesia/Patient Condition Patient Condition Patient is doing well, no complaints, stable vital signs, no apparent adverse anesthesia problems. No complications reported per nursing. JAMES MEZA CRNA Apr 23, 2023 11:33
[2023-04-23] MEDS ORDERED: morphine INJ 10 MG/ML 1ML (SYR OR VIAL) ONE (11:40)
[2023-04-23] MEDS ORDERED: ONDANSETRON INJECTION 4 MG/2 ML (SDV) IVP PRN (11:45)
[2023-04-23] MEDS ORDERED: fentaNYL INJECTION 100 MCG/2 ML VIAL IVP ONE (11:45)
[2023-04-23] MEDS ORDERED: morphine INJ 10 MG/ML 1ML (SYR OR VIAL) IVP ONE (11:45)
[2023-04-23] MEDS ORDERED: MEPERIDINE INJ 50 MG/ML VIAL IVP ONE (11:45)
[2023-04-23] MEDS ORDERED: HYDROcodone/ACETAMINOPHEN 5 MG/325 MG TABLET ONE (13:17)
[2023-04-23] MEDS ORDERED: HYDROcodone/ACETAMINOPHEN 5 MG/325 MG TABLET PO ONE (14:00)
--- NOTE | 2023-04-24 00:25 | OPERATIVE REPORT ---
DATE OF SERVICE: 04/23/2023 PREOPERATIVE DIAGNOSIS: Right inguinal hernia. POSTOPERATIVE DIAGNOSIS: Right indirect inguinal hernia and cord lipoma. PROCEDURE: Robotic right indirect inguinal hernia repair with mesh and excision of cord lipoma. SURGEON: Sindi Martin DO ANESTHESIA: General. ESTIMATED BLOOD LOSS: Minimal. COMPLICATIONS: None. INDICATIONS: The patient is a 72-year-old male with a right inguinal hernia. He understands risks and benefits of procedure and wished to proceed. Consent was signed in chart. DESCRIPTION OF PROCEDURE: The patient was taken to the operating suite, where he was prepped and draped in sterile fashion. Timeout was performed. Local anesthetic was infiltrated just around the umbilicus. An #11 blade scalpel was used to make a small skin incision. Cautery was used to dissect down through subcutaneous tissues, fascia was then scored, grasped with Kochers and elevated. The abdomen was then entered. An 0 Vicryl was placed in [id number] fashion for closure at the end of the case. A jeffery trocar was inserted. Pneumoperitoneum was achieved. Under direct visualization of laparoscope, an 8-mm robotic trocar was placed on each side of the trocar. The robot was then docked. The patient was positioned and the peritoneum was then taken down. The peritoneum was then taken down and dissected down to Ankush's ligament and then continued to move laterally and also reducing the hernia sac. Once this was dissected free, continued to mobilize the pocket laterally. Large cord lipoma was present, which this was then grasped and dissected off the cord as well. A large Bard 3D Max mesh was then inserted and secured to Ankush's ligament with 3-0 Vicryl. The superior lateral portion of the mesh was also secured with 3-0 Vicryl as well. The peritoneum was then closed using V-Loc suture. The abdomen was then desufflated. The trocars were removed. The skin was then closed using 4-0 Monocryl in subcuticular fashion. Skin Affix was placed over the incisions. The patient tolerated the procedure well without any complications, taken to recovery room in stable condition. Job ID: [id number] DocumentID: [id number] Dictated Date: 04/23/2023 17:25:15 Day Habilitation Supervisor Date: 04/24/2023 00:24:00 Dictated By: SINDI MARTIN DO
== END 2023-04-23 15:42 | disposition home or self-care (01) ==
LOC: SDC 07:27
PROVIDERS: ATTEND Surgery
DX: K40.90 Unilateral inguinal hernia, without obstruction or gangrene, not specified as recurrent (principal); G20 Parkinson's disease; D17.6 Benign lipomatous neoplasm of spermatic cord
CPT/HCPCS: 49650; 87081; C1781